=== PATIENT | female | born 1945 | race Caucasian/White ===

== ENCOUNTER 2024-03-17 16:55 | Inpatient (IN) | payer OTHER, SELFPAY ==
[2024-03-17] VITALS (14 sets, daily range): BP systolic 92–150; BP diastolic 50–89; PULSE 2–88; BMI 17.3
--- NOTE | 2024-03-17 13:19 | ED.GENMED ---
History of Present Illness
General
Chief Complaint: Breathing Problem
Source: patient, records and ambulance crew
Exam Limitations: clinical condition
Time Seen by Provider: 03/17/24 13:13
Nursing documentation reviewed up to this point in time: agreed with
Travel History
Have you had any contact with someone who has COVID-19?: No
Do you have any symptoms of coronavirus? Fever > 100 degrees, chills, cough, shortness of breath, sore throat, loss of taste or smell, muscle aches, or headache?: No
History of Present Illness
History of Present Illness:
79-year-old female with a past medical history of hypertension, hyperlipidemia, CHF, atrial fibrillation, GERD, longtime smoker who presents to the emergency department via EMS in respiratory distress. Patient is in severe respiratory distress and
is somewhat limited as a historian for this reason. She says that she started feeling short of breath last night and it was much worse this morning. She denies any coughing. Denies any fever. She denies any chest pain. Rest of review of systems
negative. According to EMS they were called for respiratory distress. According the patient's she was having some shortness of breath this morning and when he went outside to do yard work and came back she was noted to be in severe
respiratory distress and EMS was called. Per EMS on their arrival she was severely hypertensive to greater than 180 and she was given nitroglycerin. She was significantly hypoxic in the low 80s and thus she was placed on CPAP with concern for CHF.
She was transported to the emergency room.
Past History
Past History
ED Past Medical History: CAD, CHF, HTN and Other (Dissection)
ED Past Surgical History: Cardiac
Social History
Tobacco: Non-smoker
Personal:
Living: with family
Review of Systems
Review of Systems
All Other Systems: ROS reviewed and negative except as documented in HPI and ROS
Constitutional: Denies fever
Respiratory: Reports trouble breathing; Denies cough
Cardiac: Denies chest pain or palpitations
ABD/GI: Denies abdominal pain
: Denies flank pain
Musculoskeletal: Denies edema, neck pain or back pain
Neurological: Denies headache
Phy Exam
Physical Exam
Physical Exam:
General: Awake, alert, oriented x3; in respiratory distress
Head: Normocephalic, atraumatic
Eyes: Conjunctiva normal
Throat: Airway intact, handling secretions
Neck: Trachea midline, supple without meningismus
Lungs: Patient is tachypneic, hypoxic; she is saturating 88% on CPAP from EMS; she has basilar Rales and scattered expiratory wheeze
Heart: Tachycardia with regular rhythm, no murmurs, gallops, or rubs
Abd: Soft, non distended, nontender
Neuro: No gross deficits
Skin: no rash
Extremities: No edema in extremities, equal pulses in all extremities
Scores
Heart Failure Risk
Heart Failure Risk Score: Not Applicable
Heart Score for Chest Pain Patients
STEMI patient?: Not applicable
Withdrawal Assessment of Alcohol
Withdrawal Assessment Completed?: Not applicable
Course
Orders/Labs/Results
Orders:
Orders
03/17/24 13:13
CR Chest Portable - 1 View Urgent
Comment:
Reason For Exam: sob
Reason Study Needs to be Portable: Unable to Transport
03/17/24 13:14
Electrocardiogram (*1) Urgent
Reason for Study: Shortness of Breath
EKG- Treatment ONCE
Bipap [RESP] Urgent
Patient to use own unit?: No
Inspiratory Pressure (cm H2O): 12
Expiratory Pressure (cm H2O): 5
03/17/24 13:17
Complete Blood Count/With Diff Urgent
Comprehensive Metabolic Panel Urgent
Digoxin Urgent
Magnesium Urgent
NT-proBNP Urgent
PTT Urgent
Prothrombin Time Urgent
Troponin I Urgent
03/17/24 13:18
COVID-19 Antigen Urgent
Source: Nasal Swab
Lactate Level [Lactic Acid] Urgent
Influenza A+B Rapid Molecular Urgent
VILLA Source: Nasal Swab
Specimen Description:
03/17/24 13:19
Ipratropium/Albuterol Sulfate [Duoneb] 3 ml INH R NOW ONE
MethylPREDNISolone PF [Solu-Medrol Pf] 125 mg IV NOW STA
Abnormal Lab Results
03/17/24 03/17/24
13:17 13:18
WBC 12.9 H 10^3/uL
(4.8-10.8)
MCH 31.8 H pg
(27.0-31.0)
MPV 10.6 H fL
(7.4-10.4)
Abs Immat Gran (auto) 0.1 H 10^3/uL
(0-0.05)
Absolute Lymphs (auto) 6.2 H 10^3/uL
(1.2-3.4)
Absolute Monos (auto) 0.8 H 10^3/uL
(0.1-0.6)
PT 14.7 H Sec
(11.4-14.6)
Sodium 130 L mmol/L
(135-145)
Chloride 96 L mmol/L
(98-107)
Creatinine 1.3 H mg/dL
(0.6-1.0)
Glucose 263 H mg/dl
(70-99)
Lactic Acid 3.4 H mmol/L
(0.7-2.0)
Total Protein 6.2 L g/dl
(6.3-8.2)
03/17/24 13:17
03/17/24 13:17
Vital Signs
Initial and Last Documented VS:
Initial Vital Signs
Pulse Resp BP Pulse Ox
92 33 150/80 94
03/17/24 13:35 03/17/24 13:35 03/17/24 13:35 03/17/24 13:35
Last Documented Vital Signs
Pulse Resp BP Pulse Ox
92 33 150/80 94
03/17/24 13:35 03/17/24 13:35 03/17/24 13:35 03/17/24 13:35
MDM/Problems Addressed
Differential Diagnosis Includes:
CHF/flash pulmonary edema, COPD/bronchitis, pneumonia, PE a consideration but considered less likely as she is on Eliquis
MDM/Problems Addressed:
79-year-old female with extensive history as documented presents to the emergency room in severe respiratory distress. She was hypertensive, hypoxic for EMS and was given nitroglycerin and CPAP. She arrives saturating 88% on EMS CPAP and is
tachypneic with a respiratory rate in the 30s. Physical exam as above. She was transitioned to BiPAP here with improvement in oxygenation work of breathing. Will dose with steroid and DuoNeb with wheezing and longtime smoking history. Will send
labs including CBC, CMP, troponin, BNP, viral swabs. Check a stat portable chest x-ray. Check an EKG. Reassess after the above�anticipate admission.
Labs reviewed: CBC shows slight leukocytosis to 12.9, CMP shows mild hyponatremia in the setting of hyperglycemia with a glucose of 263, chronic kidney disease with a creatinine of 1.3 which is stable. Viral swabs were negative. Chest x-ray shows
mild edema consistent with acute CHF exacerbation. Will treat with IV Lasix. Suspect there may be some element of COPD as well. She was treated with DuoNeb and steroid, appears very comfortable on BiPAP with acceptable oxygenation and improved
respiratory rate. Her initial hypertension has now normalized. I think she is stable for admission at this point for acute hypoxic respiratory failure secondary to CHF exacerbation with likely some underlying element of COPD as well. Case
discussed with hospitalist for admission.
Chronic conditions affecting care:
CHF, hypertension, smoking
Acute Exacerbation and/or Progression of Chronic Illness:
Acutely hypertensive treated with nitroglycerin
Acute Exacerbation and/or Progression of Chronic Illness: HTN
*Radiology
Radiology exam reviewed: preliminary read by ED provider and radiology read reviewed
*Pulse Oximetry
Patient hypoxic: yes
*EKG
Interpreted by ED Provider?: Yes
Comparison EKG: no changes
Heart Rate: 114
Rate: tachycardiac
Rhythm: sinus and sinus tachycardia
[place]: left axis deviation
Interval: normal interval
QRS Pattern: left vent hypertrophy
Ischemia: no ischemia
*Critical Care Note
Total Time (30-74mins, 75-104mins- exclusive of procedures): 33
comment:
Critical care statement: A total of 33 minutes of critical care time was provided for this patient. This includes management of unstable vital signs, evaluation of the patient at bedside, frequent reassessment, discussion with
consultants/hospitalist, and review of pertinent medical records. This time was separate from time utilized to perform any aforementioned documented procedures
Data Reviewed
Review of Other/Old Records Reveals: Labs, Records and Radiology Studies
Source: patient, records and ambulance crew
Patient Management
Discussion with other providers: Hospitalist (Discussed with hospitalist)
Escalation/DeEscalation of care consider admission/obs:
Admission indicated
ED Attending Note
-
Portions of this chart may have been created with voice recognition software.� Occasional wrong word or��sound alike� substitutions may have occurred due to the inherent limitations of voice recognition software.
Discharge Plan
Departure
Patient Disposition: Admit
Date of Disposition: 03/17/24
Time of Disposition: 14:22
Admit to doctor: Guille
Presentation/result/management discussed w/ accepting MD/DO: Hospitalist
Discharge Problem:
Acute hypoxemic respiratory failure, COPD exacerbation, CHF exacerbation
Prescriptions:
No Action
carvedilol 6.25 mg tablet
6.25 mg PO BID
ondansetron HCl 4 mg Tablet
4 mg PO Q8H PRN (Reason: nausea/vomiting)
clopidogrel 75 mg tablet
75 mg PO DAILY
spironolactone 25 mg tablet
25 mg PO DAILY
pantoprazole 40 mg tablet,delayed release (DR/EC)
40 mg PO DAILY
digoxin 125 mcg (0.125 mg) tablet
125 mcg PO DAILY
lorazepam 1 mg tablet
1 mg PO Q6H PRN (Reason: anxiety)
Patient Comments:
01/28/2023: last filled 01/27/23, 90 tabs for 90 days from [facility]
fluticasone propionate 50 mcg/actuation [place],Suspension
1 spray INTRANASAL DAILY PRN (Reason: allergies)
rosuvastatin 20 mg tablet
20 mg PO DAILY
Eliquis 5 mg tablet
5 mg PO BID
furosemide 20 mg Tablet
20 mg PO DAILY PRN (Reason: swelling) Qty: 30 0RF
Rx Instructions:
Take 20mg daily as needed for swelling or weight gain of 2lbs.
Referrals:
Sony Baker MD [Family Provider] -
Interventions
Interventions:
*Risk Screen - Suicide Last Done: 03/17/24 13:14
*General Assessment Last Done: 03/17/24 13:14
*Neglect/Abuse Screening Last Done: 03/17/24 13:14
ED- Cardiac Assessment Last Done: 03/17/24 13:31
ED- Pulmonary Assessment Last Done: 03/17/24 13:31
Discharge Date and Time
Print Language: YORUBA
[2024-03-17 13:32] LABS: % Basophils 0.5 % (0-2); % Eosinophils 2.1 % (0-6); % Immature Granulocytes 0.4 % (0-0.5); % Lymphocytes 47.8 % (20.5-51.1); % Monocytes 6.2 % (1.7-9.3); Absolute Basophils 0.1 10^3/uL (0-0.2); Absolute Eosinophils 0.3 10^3/uL (0-0.7); Absolute Immature Granulocytes 0.1 10^3/uL (0-0.05); Absolute Lymphocytes 6.2 10^3/uL (1.2-3.4); Absolute Monocytes 0.8 10^3/uL (0.1-0.6); Absolute Neutrophils 5.5 10^3/uL (1.4-6.5); Hematocrit 40.9 % (37.0-47.0); Hemoglobin 13.5 g/dL (12.0-16.0); Mean Corpuscular Hgb 31.8 pg (27.0-31.0); Mean Corpuscular Volume 96.5 fL (81.0-99.0); Mean Platelet Volume 10.6 fL (7.4-10.4); Nucleated Red Blood Cells % 0 %; Platelet Count 227 10^3/uL (130-400); Red Blood Cell Count 4.24 10^6/uL (4.20-5.40); Red Cell Dist. Width 13.4 % (11.5-14.5); White Blood Cell Count 12.9 10^3/uL (4.8-10.8)
[2024-03-17 13:48] LABS: COVID-19 Antigen Negative (Negative); Lactic Acid 3.4 mmol/L (0.7-2.0)
[2024-03-17 13:49] LABS: ALT (SGPT) 24 U/L (0-35); AST (SGOT) 24 U/L (14-36); Albumin 3.9 g/dl (3.5-5.0); Alkaline Phosphatase 85 U/L (38-126); Blood Urea Nitrogen 14 mg/dl (7-17); Calcium 9.2 mg/dl (8.4-10.2); Carbon Dioxide 25 mmol/L (22-30); Chloride 96 mmol/L (98-107); Estimated Creatinine Clearance 27 ml/min; Glucose 263 mg/dl (70-99); Potassium 4.5 mmol/L (3.5-5.1); Sodium 130 mmol/L (135-145); Total Bilirubin 0.7 mg/dl (0.2-1.3); Total Protein 6.2 g/dl (6.3-8.2); eGFR 41.57
[2024-03-17 13:50] LABS: INR 1.17; PT 14.7 Sec (11.4-14.6)
[2024-03-17 13:51] LABS: APTT 29.1 Sec (23.4-35.0)
[2024-03-17 13:59] LABS: Troponin I < 0.012 ng/ml
[2024-03-17 14:29] LABS: NT-proBNP 7020 pg/ml
[2024-03-17] MEDS: DUONEB 3 ML INH ×2 (14:51→20:58)
[2024-03-17] MEDS: SOLU-MEDROL PF 125 MG IV (14:52)
[2024-03-17] MEDS: LASIX 40 MG IV (14:53)
--- NOTE | 2024-03-17 15:34 | HPS.HSE ---
Addendum entered and electronically signed by Destiny Booth MD 03/17/24 16:26:
pt seen and examined independently--agree with PA note
GENERAL: chronically ill cachectic female in no apparent distress although is on BiPAP currently
HEENT: NC/AT BiPAP
HEART: regular rate and rhythm, +S1, +S2--bradycardia, murmur
LUNGS : crackles all lung cornejo
ABDOM: soft, nontender, nondistended, + bowel sounds
EXT: no cyanosis, clubbing, or edema
NEUROLOGIC: grossly intact
SOB (could not lie flat) with Acute Hypoxic Respiratory Failure possibly due to Acute on Chronic HFrEF (EF 10-15%)--daughters report that her outpt color corrector does not have her on standing lasix (only PRN) and took her off spironolactone and
started amiodarone for BP control?--ADMIT to IVU--suspect heart is truly failing and would need milrinone to augment BP for diuresis--other option is midodrine--this may not be heart failure at all and SOB could be due to ILD/pulm fibrosis (pt
continues to smoke)--wean off BiPAP--consult cards--diuresis as able, daily weights, I/Os
Paroxysmal Atrial Fibrillation--not on anticoagulation for unclear reasons--ECG shows normal sinus, but rates are currently slightly bradycardia (on digoxin and amiodarone from outpt color corrector)--hold Amiodarone, Digoxin and Coreg
Coronary Artery Disease s/p BRENNAN in March 2017--Continue Plavix
Essential Hypertension -Monitor BP closely
Hyperlipidemia-Continue Crestor
CKD Stage III--Creatinine at baseline--Monitor closely while on diuretics--high risk for going into cardiorenal syndrome
COPD--Patient does not use any inhalers at home and continues to smoke--Continue DuoNeb
Tobacco Use Disorder--told needs to quit smoking
GERD--Continue Protonix
DVT proph: Heparin SC
Code Status: Full Code
overall prognosis is poor, EF 10-15%, would strongly consider palliative care/hospice if BP is limiting appropriate treatments and pt continues to smoke
Original Note:
Family Physician
-
Family Physician: Sony Baker
Chief Complaint
-
Shortness of Breath
History of Present Illness
This is an 79 year old female with past medical history of heart failure, atrial fibrillation, and coronary artery disease who presents to the emergency department with shortness of breath since yesterday. Patient reports she started feeling short
of breath when she went to bed last night. She notes she experienced shortness of breath when trying to lay flat last night and awoke this morning with increased breathing issues, prompting her to present to the emergency department. She denies
recent illness, sick contacts, or recent travel. She denies chest pain, palpitations, fever, sweats, and chills.
Upon further review with family apparently her color corrector recently stopped her spironolactone and started her on amiodarone.
Medical History
Past Medical History
Past Medical History: Reports Other
Additional Past Medical History:
Coronary Artery Disease s/p BRENNAN in March 2017
Ischemic Cardiomyopathy
Chronic HFrEF
Aortic Dissection
Paroxysmal Atrial Fibrillation
Essential Hypertension
Hyperlipidemia
CKD Stage III
COPD/ILD
GERD
Past Surgical History: Reports Other
Additional Past Surgical History:
Aortic Dissection Repair with Stent
Social History
Tobacco: Smoker (1/2 ppd)
Family History
Family History: Not pertinent
Allergies / Home Medications
Allergies reflects when Allergies were last updated in [email or web address].
Home Medications with original date entered in [email or web address]
Allergy/Medication List:
Allergies
Allergy/AdvReac Type Severity Reaction Status Date / Time
ibuprofen Allergy Unknown Unknown Verified 03/17/24 13:16
levofloxacin [From Levaquin] Allergy Unknown Unknown Verified 03/17/24 13:16
morphine Allergy Unknown Unknown Verified 06/05/24 13:16
Penicillins Allergy Unknown Unknown Verified 03/17/24 13:16
Home Medications
carvedilol 6.25 mg tablet 6.25 mg PO BID Heart disease/condition 01/28/23
clopidogrel 75 mg tablet 75 mg PO DAILY Blood clot prevention/tx 01/28/23
digoxin 125 mcg (0.125 mg) tablet 62.5 mcg PO DAILY Heart disease/condition 01/28/23
lorazepam 1 mg tablet 1 mg PO Q6HPRN PRN anxiety 01/28/23
pantoprazole 40 mg tablet,delayed release 40 mg PO DAILYPRN PRN gastrointestinal issue 01/28/23
rosuvastatin 20 mg tablet 20 mg PO HS High cholesterol 01/28/23
furosemide 20 mg tablet 20 mg PO DAILY PRN swelling #30 tabs 01/30/23
amiodarone 200 mg tablet 200 mg PO DAILY 03/17/24
dicyclomine 20 mg tablet 20 mg PO Q6HPRN PRN gas 03/17/24
pseudoephedrine 30 mg-acetaminophen 500 mg tablet 1 tab PO DAILYPRN PRN sinus pain 03/17/24
Review of Systems
-
A 12 point ROS was completed and negative except as noted: Yes
Constitutional: Denies Fever or Chills
Respiratory: Reports Trouble Breathing; Denies Cough
Cardiac: Denies Chest Pain or Palpitations
Physical Exam
Vital Signs
Vital Signs
Pulse Resp BP Pulse Ox
67 19 107/50 99
03/17/24 15:01 03/17/24 15:01 03/17/24 15:01 03/17/24 15:01
Physical Exam
General: Well Developed, Well Nourished and Conversant
HEENT: NormoCephalic, Anicteric, Moist mucous membranes and Other (BiPAP in place)
Respiratory: Rales (Bilateral Bases)
Cardiac: S1/S2, Regular Rhythm and Bradycardia (Slightly)
GI: Soft and Non Tender
Rectal: Deferred by Provider
Musculoskeletal: No Clubbing, No Cyanosis and No Edema
Skin: Warm and Dry
Neuro: Awake, Alert, Oriented and Nonfocal/grossly intact
Laboratory Results
-
03/17/24 13:17
03/17/24 13:17
Laboratory Results
PT 14.7 Sec (11.4-14.6) H 03/17/24 13:17
INR 1.17 03/17/24 13:17
APTT 29.1 Sec (23.4-35.0) 03/17/24 13:17
Lactic Acid 3.4 mmol/L (0.7-2.0) H 03/17/24 13:18
Total Bilirubin 0.7 mg/dl (0.2-1.3) 03/17/24 13:17
AST 24 U/L (14-36) 03/17/24 13:17
ALT 24 U/L (0-35) 03/17/24 13:17
Alkaline Phosphatase 85 U/L (38-126) 03/17/24 13:17
Troponin I < 0.012 ng/ml 03/17/24 13:17
Data Reviewed
-
Diagnostic Radiology: Report Reviewed by me
Lab Data: Labs Reviewed by me
Impression/Plan
-
Acute Hypoxic Respiratory Failure secondary to Acute on Chronic HFrEF
-Initially on BiPAP but able to wean off - Continue supplemental oxygen
-Consult Cardiology
-Continue Lasix 40mg IV Daily
-Monitor Is&Os and Daily Weights
-Check Echo
Paroxysmal Atrial Fibrillation
-ECG shows normal sinus, but rates are currently slightly bradycardia
-Hold Amiodarone, Digoxin and Coreg pending Cardiology Evaluation
-Attempt to obtain recent Cardiology Office Note
Coronary Artery Disease s/p BRENNAN in March 2017
-Continue Plavix
Essential Hypertension
-Monitor BP closely
Hyperlipidemia
-Continue Crestor
CKD Stage III
-Creatinine at baseline
-Monitor closely while on diuretics
COPD
-Patient does not use any inhalers at home
-Continue DuoNeb
Tobacco Use Disorder
-Encourage smoking cessation
GERD
-Continue Protonix
DVT proph: Heparin SC
Code Status: Full Code
[2024-03-17 15:39] LABS: Digoxin 0.4 ng/ml (0.8-2.0)
--- NOTE | 2024-03-17 15:41 | CON.CAR ---
Addendum entered and electronically signed by Karan Luis MD 03/17/24 17:30:
I saw and examined the patient.
The [employer] Operator's note was reviewed and I agree with the note.
Comment:
GEN: No distress, awake, Ox3
HEENT: supple, anicteric, mmm
LUNGS: scatt rhonchi
CV: Reg, S1/S2, 1/6 syst LSB,S3+
ABD: soft, BS+, NT/ND
EXT: No edema
NEURO: Gross non-focal
SKIN: No rash
Plan:
She has a complex past medical history including chronic heart failure with reduced ejection fraction of 10 to 15%, paroxysmal atrial fibrillation, hypertension, previous aortic dissection repair, ICD, coronary artery disease, hyperlipidemia,
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 She presents with progressive shortness of breath for several days. She woke up last night with marked shortness of breath and was in respiratory distress. She was brought to [facility] was placed
on CPAP and given diuretics. She states that she has had several trips to the emergency room at [place] this month. In February she was diagnosed with hyperkalemia and her spironolactone was stopped. Then in mid February she was found to have new onset
atrial fibrillation with a rapid ventricular rate. She was not anticoagulated for unclear reasons, possibly due to low burden of atrial fibrillation. Amiodarone was added to her carvedilol and digoxin. Currently she feels better after starting
BiPAP
Start Lasix 40 mg IV twice daily.
Check echocardiogram to reevaluate LVEF and aortic valve.
Continue carvedilol and amiodarone.
Hold off on spironolactone or MARCUS/ARB with history of recent hyperkalemia.
She fortunately remains in sinus rhythm. I discussed with her and her family anticoagulation and for now they prefer to stay off of Eliquis but will think about this option. I did advise them that her [id number] score is 5 and she is high risk
for stroke.
Original Note:
Consultation
Consultation Request
Date/Time Consultation Requested: 03/17/24
Date/Time Consultation Performed: 03/17/24
Requesting Provider: Dr. Garrison in the ER
Performing Provider: Dr. Luis
Reason for Consultation: Acute HF
Medical History
-
History of Present Illness:
Patient came to ER today with shortness of breath and is being admitted with acute heart failure, cardiology has been consulted. Patient is present in the room along with her and her 2 daughters[address] Patient [address]. Hernandez at [facility].
Patient was seen in [facility] ER on 02/18/2024 with diarrhea and hyperkalemia, treatment included cessation of spironolactone. Patient then returned to [facility] ER almost 2 weeks later with palpitations and was found to be in atrial fibrillation and a rapid
ventricular response. She has a remote history of A-fib around the time of her type a aortic dissection repair in 2016, but this was her first documented recurrence. She is not chronically anticoagulated due to the low burden of atrial arrhythmia.
Patient says treatment for her recurrent A-fib 02/2024 was the addition of amiodarone 200 mg daily to her usual doses of Coreg 6.25 mg twice daily and digoxin 0.0625 mg daily. Patient says that she opted not to start oral anticoagulation because
she was previously intolerant to Eliquis with a complaint of GI upset, no history of bleeding complications. Patient says that when she went to bed last night she had symptoms of orthopnea and PND, but no chest pain and no palpitations. Today
while outside gardening her shortness of breath recurred and at rest she could not catch her breath and so her called 911. Paramedics reported that patient was in respiratory distress and CPAP was started en route to the hospital. The
patient was given Lasix 40 mg IV x 1 in the ER and has had increased urine output and improvement in her shortness of breath and hypoxia.
PMH:
Chronic HFrEF
ICM EF 10-15% by echo 01/29/23
Recent [facility] ER visit for diarrhea and hyperkalemia treated with cessation of spironolactone 02/18/24
Recent [facility] ER visit for rapid Afib treated with addition of amiodarone 02/27/24
Paroxysmal Afib
[employer] subcutaneous ICD 05/2017
CAD
NSTEMI w/ LAD BRENNAN 03/2017
Hypertension
Hyperlipidemia
PVCs
Active smoker
h/o Type A Aortic dissection s/p open heart repair/stented at [facility] 03/2017
h/o post-op complicated with clot around the stent and started Eliquis 03/2017
h/o post-op Afib without documented clinical recurrence 03/2017
Benign breast disease - lumpectomy
Colon polypectomy
Raynaud's
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
Past Medical History
Past Medical History: Other (in HPI)
Past Surgical History: Cardiac (aortic dissection s/p open heart repair and stented in 2016 @ [facility])
Social History
Tobacco: Smoker
Alcohol: Occasional
Drug: None
Personal:
Living: With Family
Family History
Family History: Cancer
Allergies / Home Medications
Allergy/AdvReac Type Severity Reaction Status Date / Time
ibuprofen Allergy Unknown Unknown Verified 03/17/24 13:16
levofloxacin [From Levaquin] Allergy Unknown Unknown Verified 03/17/24 13:16
morphine Allergy Unknown Unknown Verified 03/17/24 13:16
Penicillins Allergy Unknown Unknown Verified 03/17/24 13:16
�Medication �Instructions �Recorded �Confirmed �Type
carvedilol 6.25 mg tablet 6.25 mg PO BID Heart 01/28/23 03/17/24 History
disease/condition
clopidogrel 75 mg tablet 75 mg PO DAILY Blood clot 01/28/23 03/17/24 History
prevention/tx
digoxin 125 mcg (0.125 mg) tablet 62.5 mcg PO DAILY Heart 01/28/23 03/17/24 History
disease/condition
lorazepam 1 mg tablet 1 mg PO Q6HPRN PRN anxiety 01/28/23 03/17/24 History
pantoprazole 40 mg tablet,delayed 40 mg PO DAILYPRN PRN 01/28/23 03/17/24 History
release gastrointestinal issue
rosuvastatin 20 mg tablet 20 mg PO HS High cholesterol 01/28/23 03/17/24 History
furosemide 20 mg tablet 20 mg PO DAILY PRN swelling #30 01/30/23 03/17/24 Rx
tabs
amiodarone 200 mg tablet 200 mg PO DAILY 03/17/24 03/17/24 History
dicyclomine 20 mg tablet 20 mg PO Q6HPRN PRN gas 03/17/24 03/17/24 History
pseudoephedrine 30 1 tab PO DAILYPRN PRN sinus pain 03/17/24 03/17/24 History
mg-acetaminophen 500 mg tablet
Review of Systems
-
History Source: Patient and Family
All other systems: Negative unless noted
Physical Exam
Vital Signs
Pulse Resp BP Pulse Ox
67 19 107/50 99
03/17/24 15:01 03/17/24 15:01 03/17/24 15:01 03/17/24 15:01
GEN: NAD. AAOx3
HEENT: EOMI, MMM
LUNGS: Wearing CPAP, bibasilar rales without wheeze
CV: Reg, S1/S2, 2/6 diastolic murmur
ABD: soft, BS+, NT, ND
EXT: No cyanosis, clubbing, edema B/L
NEURO: Gross non-focal
SKIN: Warm, pink, dry. No rash
Lab Results
03/17/24 13:17
03/17/24 13:17
Troponin I < 0.012 ng/ml 03/17/24 13:17
Jbv-E-Bjfwtipbpuf Pept 7020 pg/ml 03/17/24 13:17
Impression / Plan
-
Family Physician:� Dony Simon
Well Flow Operator: Dr. Hernandez, [facility],
Impression:
Acute on chronic HFrEF
Acute hypoxic respiratory failure on CPAP initially
ICM EF 10-15% by echo 01/29/23
Recent [facility] ER visit for diarrhea and hyperkalemia treated with cessation of spironolactone 02/18/24
Recent [facility] ER visit for rapid Afib treated with addition of amiodarone 02/27/24
Paroxysmal Afib
[employer] subcutaneous ICD 05/2017
CAD
NSTEMI w/ LAD BRENNAN 03/2017
Hypertension
Hyperlipidemia
PVCs
Active smoker
h/o Type A Aortic dissection s/p open heart repair/stented at [facility] 03/2017
h/o post-op complicated with clot around the stent and started Eliquis 03/2017
h/o post-op Afib without documented clinical recurrence 03/2017
Benign breast disease - lumpectomy
Colon polypectomy
Raynaud's
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
Cardia cath 03/2017 with: 100% proximal LAD thrombotic stenosis status post BRENNAN, [place] CO 2.84, [place] CI 1.7
Echocardiogram 03/2017: EF 20 to 25%, anterior, apical, lateral wall HK, LA 4.2, RSVP 40 to 45 mmHg, no significant valvular disease
Echo 09/2017 :EF 15 to 20% with mild MR/TR, PAP 40-45 mmhg
Echo 01/29/2023: EF 10 to 15%, severe global hypokinesis with mid anteroseptal, mid septal, mid anterior, apical akinesis, stage I diastolic dysfunction, mild AR
Lexiscan nuclear stress test 04/2019:�Large fixed apical/septal defect
CTA of chest/aorta with and without contrast 11/27/2022 ([facility]):�Ascending aortic root graft without evidence of endoleak sinus of Valsalva 3.4 cm, ST junction 2.8 cm, maximum ascending ao with 3.1 cm ao arch 2.8 cm, descending thoracic aorta 2.7 cm, 8
x 6 mm right pulmonary artery soft tissue focus, previously 7 x 12 mm
Plan:
Patient came to ER today with shortness of breath and is being admitted with acute heart failure, cardiology has been consulted. Patient is present in the room along with her and her 2 daughters[address] Patient [address] Hernandez at [facility].
Patient was seen in [facility] ER on 02/18/2024 with diarrhea and hyperkalemia, treatment included cessation of spironolactone. Patient then returned to [facility] ER almost 2 weeks later with palpitations and was found to be in atrial fibrillation and a rapid
ventricular response. She has a remote history of A-fib around the time of her type a aortic dissection repair in 2016, but this was her first documented recurrence. She is not chronically anticoagulated due to the low burden of atrial arrhythmia.
Patient says treatment for her recurrent A-fib 02/2024 was the addition of amiodarone 200 mg daily to her usual doses of Coreg 6.25 mg twice daily and digoxin 0.0625 mg daily. Patient says that she opted not to start oral anticoagulation because
she was previously intolerant to Eliquis with a complaint of GI upset, no history of bleeding complications. Patient says that when she went to bed last night she had symptoms of orthopnea and PND, but no chest pain and no palpitations. Today
while outside gardening her shortness of breath recurred and at rest she could not catch her breath and so her called 911. Paramedics reported that patient was in respiratory distress and CPAP was started en route to the hospital. The
patient was given Lasix 40 mg IV x 1 in the ER and has had increased urine output and improvement in her shortness of breath and hypoxia.
-Patient with acute HFrEF. EF has been as low as 20% since 2017 and was lower at 10-15% during her admission to last year. Called Dr. Hernandez's office for records, but no recent echo so will repeat.
-Agree with Lasix 40 mg IV BID diuresis for now. Patient was ordered Lasix 20 mg daily PRN prior to admission, but reports essentially never taking a dose because she never has edema including now.
-Initial Troponin undetectable, will trend
-ECG reviewed by me show sinus tachycardia with lateral ST changes that are better than last year.
-Will arrange for [employer] ICD check although data will be limited.
-ICM is known and GDMT includes Coreg 6.25 mg BID only at this point as her spironolactone was stopped for hyperkalemia in the setting of diarrhea last month. Reportedly she was tried on MARCUS/ARB and then Entresto in the past and developed ABDELRAHMAN and/or
hyperkalemia. Not sute is she has been tried on an SGLT-2.
-Had a shavon conversation with patient and family in the room that patient might require inotropic therapy for effective diuresis and that this would be unfavorable for her prognosis. Asked patient and family if they have had any talks about
long-term CM and the possibility of end-stage HF and they are unaware. Patient wishes to be a full code and wants ICD therapies turned on and she would want to be intubated if needed.
-Patient with paroxysmal Afib at [facility] last month. She is not anticoagulated and no h/o thromboembolic event. Discussed the risk of stroke off of OAC. Family reports GI upset with Eliquis in the past, but no bleeding complications. Patient has
tolerate Plavix therapy since her PCI in 2017.
-Digoxin level 0.4
-Cont amiodarone 200 mg daily for now, but if bradycardic overnight then will need to consider stopping or decreasing Coreg dose. Patient had nocturnal bradycardia last admission.
-Aortic regurgitation sounds worse, will recheck echo.
-Called primary data administrator to get records.
--- NOTE | 2024-03-17 15:56 | CM ---
Patient seen at bedside with physician, 2 daughters, and . Patient primarily goes to [facility] and has a police captain Dr. Romero. Patient PCP is Dr. Simon and she uses the [facility]. Patient does state that she currently
is a Smoker and uses alcohol occasionally. Patient does not have any DME at home. Patient lives with her and all 4 daughters are close by. One daughter is a PT and states that patient will not cooperate with her or follow PT/OT
recommendations. CM will continue to follow for discharge planning needs.
Plan; home with family watch for VN needs.
--- NOTE | 2024-03-17 18:36 | PTCARENOTE ---
Admitted to 3345 IVU status- monitors placed- SR 82-24 RR, 122/64, 100% on 6L NC. Turned O2 down to 3L NC and monitor. Denies pain. Bibase crackles noted. PO diet tray ordered. Admission competed bedside. Ambulated into bathroom x2 to void.
Call albarado in reach . Family at bedside.
[2024-03-17 18:56] LABS: Lactic Acid 1.8 mmol/L (0.7-2.0)
[2024-03-17 19:14] LABS: Troponin I 0.048 ng/ml
[2024-03-17] MEDS: HEPARIN 5000 UNITS SC (19:46)
[2024-03-17] MEDS: CRESTOR 20 MG PO (21:50)
[2024-03-18] VITALS (21 sets, daily range): BP systolic 107–143; BP diastolic 47–102; PULSE 57–61; O2SAT 97–98; BMI 15.9
[2024-03-18] MEDS: HEPARIN 5000 UNITS SC ×4 (01:16→22:34)
[2024-03-18] MEDS: ATIVAN 0.5 MG PO (01:42)
--- NOTE | 2024-03-18 02:05 | PTCARENOTE ---
Pt having complaint of trouble sleeping. Pt states at home she takes Ativan for the anxiety at night. Night [employer] RE[employer]ERATION WORKER made aware and one time order for Ativan 0.5mg ordered. Pt had no other complaints at this time. Vitals stable at this time.
[2024-03-18 05:24] LABS: Hematocrit 37.9 % (37.0-47.0); Hemoglobin 13.5 g/dL (12.0-16.0); Mean Corp Hgb Conc. 35.6 g/dL (33.0-37.0); Mean Corpuscular Hgb 31.6 pg (27.0-31.0); Mean Corpuscular Volume 88.8 fL (81.0-99.0); Mean Platelet Volume 9.9 fL (7.4-10.4); Platelet Count 193 10^3/uL (130-400); Red Blood Cell Count 4.27 10^6/uL (4.20-5.40); Red Cell Dist. Width 13.1 % (11.5-14.5); White Blood Cell Count 8.1 10^3/uL (4.8-10.8)
[2024-03-18 05:51] LABS: Blood Urea Nitrogen 21 mg/dl (7-17); Calcium 9.5 mg/dl (8.4-10.2); Carbon Dioxide 28 mmol/L (22-30); Chloride 94 mmol/L (98-107); Estimated Creatinine Clearance 33 ml/min; Glucose 119 mg/dl (70-99); HDL Cholesterol 55 mg/dl; LDL Cholesterol, Calculated 79 mg/dl; Magnesium 1.6 mg/dl (1.6-2.3); Potassium 4.1 mmol/L (3.5-5.1); Sodium 131 mmol/L (135-145); Total Cholesterol 144 mg/dl (50-199); Triglyceride 50 mg/dl (10-149); Very Low Density Lipoprotein 10 mg/dl (0-30); eGFR 56.95
[2024-03-18 06:23] LABS: TSH Reflex To Free T4 0.05 uIU/ml (0.47-4.68)
[2024-03-18 06:51] LABS: Free T4 1.29 ng/dl (0.78-2.19)
[2024-03-18 07:09] LABS: Troponin I 0.053 ng/ml
[2024-03-18] MEDS: PLAVIX 75 MG PO (08:07)
[2024-03-18] MEDS: LASIX 40 MG IV (08:07)
[2024-03-18] MEDS: DUONEB INH (08:15)
--- NOTE | 2024-03-18 08:45 | W.PN.HOSP.TC ---
Today's Communication/Plan
-
cont diuresis
restart meds as per cards
assess for home O2
Assessment / Plan
Assessment / Plan
pt is an 79 year old female
SOB (could not lie flat) with Acute Hypoxic Respiratory Failure possibly due to Acute on Chronic HFrEF (EF 10-15%)--daughters report that her outpt mercerizer does not have her on standing lasix (only PRN) and took her off spironolactone and
started amiodarone for BP control?---suspect heart is truly failing and may need milrinone to augment BP for diuresis--other option is midodrine--this may not be all heart failure and SOB could be due to ILD/pulm fibrosis (pt continues to smoke)--
off BiPAP--apprec cards--diuresis as able, daily weights, I/Os--pt wants to be discharged today--I do not believe she wants to hear what we have to say re: how sick she is, what GDMT is, etc--I believe she will do what she wants when she wants--IF
she insists on leaving it will be AMA--since pt still on O2, likely will need at home; HOWEVER, pt continues to smoke--will place assessment for home O2
Paroxysmal Atrial Fibrillation--not on anticoagulation for unclear reasons--ECG shows normal sinus, but rates are currently slightly bradycardia (on digoxin and amiodarone from outpt mercerizer)--hold Amiodarone, Digoxin and Coreg--restart at
cardiology discretion
Coronary Artery Disease s/p BRENNAN in March 2017--Continue Plavix
Essential Hypertension -Monitor BP closely
Hyperlipidemia-Continue Crestor
CKD Stage III--Creatinine at baseline--Monitor closely while on diuretics--high risk for going into cardiorenal syndrome
COPD--Patient does not use any inhalers at home and continues to smoke--Continue DuoNeb
Tobacco Use Disorder--told needs to quit smoking
GERD--Continue Protonix
DVT proph: Heparin SC
Code Status: Full Code
overall prognosis is poor, EF 10-15%, would strongly consider palliative care/hospice if BP is limiting appropriate treatments and pt continues to smoke
either pt has not been told or is in denial about how sick she truly is and that she has end-stage heart failure
Anticipated Discharge: > 48 hours
Subjective/Interval History
-
Date of Service: March 18, 2024
pt wants to go home
wants her meds restarted at the times she wants
Objective Data
-
Labs:
Laboratory Results
03/18/24
05:09
WBC 8.1
Hgb 13.5
Hct 37.9
Plt Count 193
Sodium 131 L
Potassium 4.1
Chloride 94 L
Carbon Dioxide 28
BUN 21 H
Creatinine 1.0
Glucose 119 H
Calcium 9.5
Vital Signs:
max temp for 24 hours
03/17/24
19:25
Temp 98.4 F
Vital Signs
Temp Pulse Resp BP Pulse Ox
96.4 F L 74 17 127/69 97
03/18/24 07:20 03/18/24 08:07 03/18/24 06:00 03/18/24 08:07 03/18/24 08:17
I&O
03/17/24 03/18/24 03/19/24
06:59 06:59 06:59
Intake Total 120 / 120
Balance 120 / 120
Review of Systems
-
All other systems: Reviewed and negative
Physical Exam
-
General: Well Developed, Well Nourished and No Apparent Distress
HEENT: Normocephalic, Atraumatic and Oxygen
Respiratory: Rales (bases)
Cardiac: Regular Rhythm, S1/S2, Murmur and Bradycardic
GI: Soft, Nontender, Nondistended and Normal Bowel Sounds
Musculoskeletal: No Clubbing, No Cyanosis and No Edema
Neuro: Awake and Alert
Psych: Calm
[2024-03-18] MEDS: PACERONE 200 MG PO (09:11)
[2024-03-18] MEDS: APRESOLINE 10 MG PO ×3 (09:11→22:35)
--- NOTE | 2024-03-18 10:21 | CARDSERVLU ---
Echocardiogram with Lumason completed after protocol screening completed. Allergies verified.
Patent IV site: _Right arm accessory cephalic IV site clear____
IV site flushed with 0.9% NaCl pre and post administration.
Diluted bolus method utilized to enhance visualization of ventricular bran.
Total volume given: _4___ mL
Patient tolerated all procedures well without complications.
--- NOTE | 2024-03-18 10:56 | W.PN.CARDCBS ---
Today's Communication / Plan
-
Continue IV Lasix today, tentative transition to oral Lasix in the next 24 to 48 hours
Start hydralazine for afterload reduction
Will add back Coreg at a lower dose
Stop digoxin as she is currently in sinus rhythm
Impression / Plan
-
Family Physician:� Dony Simon
Customer Solutions Representative: Dr. Hernandez, [facility],
Impression:
Acute on chronic HFrEF
Acute hypoxic respiratory failure on CPAP initially
Lactic acidosis
ICM EF 10-15% by echo 01/29/23
Troponin elevation - suspect nonischemic myocardial injury troponin elevation
Recent [facility] ER visit for diarrhea and hyperkalemia treated with cessation of spironolactone 02/18/24
Recent [facility] ER visit for rapid Afib treated with addition of amiodarone 02/27/24
Paroxysmal Afib
[employer] subcutaneous ICD 05/2017
CAD
NSTEMI w/ LAD BRENNAN 03/2017
Hypertension
Hyperlipidemia
PVCs
Active smoker
h/o Type A Aortic dissection s/p open heart repair/stented at [facility] 03/2017
h/o post-op complicated with clot around the stent and started Eliquis 03/2017
h/o post-op Afib without documented clinical recurrence 03/2017
Benign breast disease - lumpectomy
Colon polypectomy
Raynaud's
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
Cardia cath 03/2017 with: 100% proximal LAD thrombotic stenosis status post BRENNAN, [place] CO 2.84, [place]row CI 1.7
Echocardiogram 03/2017: EF 20 to 25%, anterior, apical, lateral wall HK, LA 4.2, RSVP 40 to 45 mmHg, no significant valvular disease
Echo 09/2017 :EF 15 to 20% with mild MR/TR, PAP 40-45 mmhg
Echo 01/29/2023: EF 10 to 15%, severe global hypokinesis with mid anteroseptal, mid septal, mid anterior, apical akinesis, stage I diastolic dysfunction, mild AR
Lexiscan nuclear stress test 04/2019:�Large fixed apical/septal defect
CTA of chest/aorta with and without contrast 11/27/2022 ([facility]):�Ascending aortic root graft without evidence of endoleak sinus of Valsalva 3.4 cm, ST junction 2.8 cm, maximum ascending ao with 3.1 cm ao arch 2.8 cm, descending thoracic aorta 2.7 cm, 8
x 6 mm right pulmonary artery soft tissue focus, previously 7 x 12 mm
Patient came to ER today with shortness of breath and is being admitted with acute heart failure, cardiology has been consulted. Patient is present in the room along with her and her [address] Hernandez at [facility].
Patient was seen in [facility] ER on 02/18/2024 with diarrhea and hyperkalemia, treatment included cessation of spironolactone. Patient then returned to [facility] ER almost 2 weeks later with palpitations and was found to be in atrial fibrillation and a rapid
ventricular response. She has a remote history of A-fib around the time of her type a aortic dissection repair in 2016, but this was her first documented recurrence. She is not chronically anticoagulated due to the low burden of atrial arrhythmia.
Patient says treatment for her recurrent A-fib 02/2024 was the addition of amiodarone 200 mg daily to her usual doses of Coreg 6.25 mg twice daily and digoxin 0.0625 mg daily. Patient says that she opted not to start oral anticoagulation because
she was previously intolerant to Eliquis with a complaint of GI upset, no history of bleeding complications. Patient says that when she went to bed last night she had symptoms of orthopnea and PND, but no chest pain and no palpitations. Today
while outside gardening her shortness of breath recurred and at rest she could not catch her breath and so her called 911. Paramedics reported that patient was in respiratory distress and CPAP was started en route to the hospital. The
patient was given Lasix 40 mg IV x 1 in the ER and has had increased urine output and improvement in her shortness of breath and hypoxia.
Plan:
-Presenting with respiratory failure d/t acute decompensate HFrEF (EF 10-15%)
-Lactate initially elevated, but has not normalized. Currently warm and well perfused on exam.
-Volume status is improved with IV lasix
-Remains on supplemental O2, wean as able
-Suspect we can transition to PO lasix in the next 24-48hrs. Was ordered for PRN Lasix 20mg daily prior to admission. We discussed PO lasix 20mg MWF on discharge.
-Reviewed importance of daily weights and limiting Na intake (has been drinking Propel)
-Resume Coreg at lower dose for today 3.125 BID - if tolerating will discharge on 6.25
-Add hydral 10mg TID today for afterload reduction with goal to discharge on 25mg BID.
-Was unable to tolerate MARCUS/ARB/ARNI and Aldactone in the past by her report
-Could consider SGLT2 inhibitor
-Low level troponin elevation, most recently 0.053, would trend to peak
-Currently chest pain free.
-Suspect nonischemic myocardial injury troponin elevation
-History of pAFib, but currently maintaining NSR
-Stop digoxin
-Cont amiodarone 200 mg daily
-Not chronically on anticoagulation, reports medication side effects to oral anticoagulants in the past
Progress Note - Customer Solutions Representative
Subjective
Date of Service: March 18, 2024
No acute overnight events. Resting comfortably in the IMU. Still requiring supplemental oxygen but tells me that her breathing is significantly improved from admission. No chest pain. No lower extremity edema.
Objective
Labs:
03/18/24 05:09
03/18/24 05:09
Labs
Hgb 13.5 g/dL (12.0-16.0) 03/18/24 05:09
Hct 37.9 % (37.0-47.0) 03/18/24 05:09
Plt Count 193 10^3/uL (130-400) 03/18/24 05:09
PT 14.7 Sec (11.4-14.6) H 03/17/24 13:17
INR 1.17 03/17/24 13:17
APTT 29.1 Sec (23.4-35.0) 03/17/24 13:17
Sodium 131 mmol/L (135-145) L 03/18/24 05:09
Potassium 4.1 mmol/L (3.5-5.1) 03/18/24 05:09
BUN 21 mg/dl (7-17) H 03/18/24 05:09
Creatinine 1.0 mg/dL (0.6-1.0) 03/18/24 05:09
Glucose 119 mg/dl (70-99) H 03/18/24 05:09
Digoxin 0.4 ng/ml (0.8-2.0) L 03/17/24 13:17
Troponins
03/17/24 03/17/24 03/17/24
13:17 16:36 18:38
Troponin I < 0.012 Cancelled 0.048 H* D
03/18/24
06:20
Troponin I 0.053 H*
Vital Signs and I&O:
Vital Signs
Temp Pulse Resp BP Pulse Ox
96.4 F L 67 17 126/73 97
03/18/24 07:20 03/18/24 09:11 03/18/24 06:00 03/18/24 09:11 03/18/24 08:17
Vital Signs
Temp Pulse Resp BP Pulse Ox
96.4 F L 67 17 126/73 97
03/18/24 07:20 03/18/24 09:11 03/18/24 06:00 03/18/24 09:11 03/18/24 08:17
Intake & Output
03/16/24 03/17/24 03/18/24 03/19/24
06:59 06:59 06:59 06:59
Intake Total 120 / 120 400 / 400
Balance 120 / 120 400 / 400
Physical Exam
Physical Exam
Gen: NAD, AAOx3
HEENT: NC/AT, sclera anicteric
Neck: No JVD
CV: RRR, NL s1/s2
Lungs: No increased WOB on 2L NC
Abd: S/ND
Ext: No LE edema, warm
Skin: Warm, dry
Neuro: Non-focal
--- NOTE | 2024-03-18 11:15 | PTOTSP ---
pt currently demonstrates ability to complete simple ADLs, functional transfers, ambulation with supervision to no assistance. education provided regarding CHF, exercising, energy conservation. pt verablized understanding. no acute OT needs
identified at this time, will sign off.
[2024-03-18] MEDS: COREG 3.125 MG PO ×2 (11:41→20:16)
[2024-03-18 13:08] LABS: Troponin I 0.039 ng/ml
[2024-03-18 13:14] LABS: Glycohemoglobin (HgbA1c) 6.1 % (4.0-5.6)
[2024-03-18] MEDS: CRESTOR 20 MG PO (17:03)
--- NOTE | 2024-03-18 18:46 | PTCARENOTE ---
pt transferred to IVU via wheelchair and monitor. report provided to Jermaine GORDON from [facility]. family with pt.
--- NOTE | 2024-03-18 22:04 | PTCARENOTE ---
Pt tsf from IMU to IVU. Oriented pt to room. Family at bedside. AOX4. Tele- SR. Assessment noted as documented. Pt sating at 94% on RA. No c/o at this time. Education provided about fluid restriction and daily weights. Pt currently in bed; call [facility]
w/in reach.
[2024-03-18] MEDS: ATIVAN 1 MG PO (22:35)
[2024-03-19 03:42] VITALS: BP 100/49
[2024-03-19 03:43] VITALS: BP 114/57
[2024-03-19 04:39] VITALS: BMI 16.0
[2024-03-19 05:21] LABS: ALT (SGPT) 18 U/L (0-35); AST (SGOT) 18 U/L (14-36); Albumin 3.5 g/dl (3.5-5.0); Alkaline Phosphatase 71 U/L (38-126); Blood Urea Nitrogen 34 mg/dl (7-17); Calcium 9.1 mg/dl (8.4-10.2); Carbon Dioxide 31 mmol/L (22-30); Chloride 90 mmol/L (98-107); Estimated Creatinine Clearance 25 ml/min; Glucose 101 mg/dl (70-99); Magnesium 1.7 mg/dl (1.6-2.3); Potassium 4.2 mmol/L (3.5-5.1); Sodium 129 mmol/L (135-145); Total Bilirubin 0.6 mg/dl (0.2-1.3); Total Protein 5.7 g/dl (6.3-8.2); eGFR 41.57
[2024-03-19 06:13] LABS: Hematocrit 34.7 % (37.0-47.0); Hemoglobin 12.3 g/dL (12.0-16.0); Mean Corp Hgb Conc. 35.4 g/dL (33.0-37.0); Mean Corpuscular Hgb 32.3 pg (27.0-31.0); Mean Corpuscular Volume 91.1 fL (81.0-99.0); Mean Platelet Volume 10.8 fL (7.4-10.4); Platelet Count 189 10^3/uL (130-400); Red Blood Cell Count 3.81 10^6/uL (4.20-5.40); Red Cell Dist. Width 13.2 % (11.5-14.5); White Blood Cell Count 14.8 10^3/uL (4.8-10.8)
[2024-03-19 07:50] VITALS: BP 125/58
--- NOTE | 2024-03-19 08:13 | W.PN.HOSP.TC ---
Today's Communication/Plan
-
d/c
Assessment / Plan
Assessment / Plan
pt is an 79 year old female
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
started amiodarone for BP control?---suspect heart is truly failing and may need milrinone to augment BP for diuresis--other option is midodrine--this may not be all heart failure and SOB could be due to ILD/pulm fibrosis (pt continues to smoke)--
off BiPAP--apprec cards--diuresis as able, daily weights, I/Os----I do not believe she wants to hear what we have to say re: how sick she is, what GDMT is, etc--I believe she will do what she wants when she wants--does not qualify for home O2, pt
continues to smoke
Paroxysmal Atrial Fibrillation--not on anticoagulation for unclear reasons--ECG shows normal sinus, but rates are currently slightly bradycardia (on digoxin and amiodarone from outpt foam tank laminator)--hold Amiodarone, Digoxin and Coreg--restart at
cardiology discretion
Coronary Artery Disease s/p BRENNAN in March 2017--Continue Plavix
Essential Hypertension -Monitor BP closely
Hyperlipidemia-Continue Crestor
CKD Stage III--Creatinine at baseline--Monitor closely while on diuretics--high risk for going into cardiorenal syndrome
COPD--Patient does not use any inhalers at home and continues to smoke--Continue DuoNeb
Tobacco Use Disorder--told needs to quit smoking
GERD--Continue Protonix
DVT proph: Heparin SC
Code Status: Full Code
overall prognosis is poor, EF 10-15%, would strongly consider palliative care/hospice if BP is limiting appropriate treatments and pt continues to smoke
either pt has not been told or is in denial about how sick she truly is and that she has end-stage heart failure
Anticipated Discharge: Today
Subjective/Interval History
-
Date of Service: March 19, 2024
pt feels good, wants to go home
Objective Data
-
Labs:
Laboratory Results
03/19/24
03:48
WBC 14.8 H
Hgb 12.3
Hct 34.7 L
Plt Count 189
Sodium 129 L
Potassium 4.2
Chloride 90 L
Carbon Dioxide 31 H
BUN 34 H
Creatinine 1.3 H
Glucose 101 H
Calcium 9.1
Total Bilirubin 0.6
AST 18
ALT 18
Alkaline Phosphatase 71
Vital Signs:
max temp for 24 hours
03/17/24
13:28 03/19/24
03:42 03/19/24
04:39
Temp 98.4 F
Actual Weight 50.2 kg 46.2 kg
Vital Signs
Temp Pulse Resp BP Pulse Ox
98.6 F 65 20 114/57 93
03/19/24 07:50 03/19/24 04:00 03/19/24 07:50 03/19/24 03:43 03/19/24 07:50
I&O
03/18/24 03/19/24 03/20/24
06:59 06:59 06:59
Intake Total 120 / 120 1190 / 1190
Balance 120 / 120 1190 / 1190
Review of Systems
-
All other systems: Reviewed and negative
Physical Exam
-
General: Appears Chronically Ill and Cachectic
HEENT: Normocephalic and Atraumatic; Negative Oxygen
Respiratory: Clear to Auscultation; Negative Wheezes, Rales, Rhonchi or Crackles
Cardiac: Regular Rhythm, S1/S2 and Murmur
GI: Soft, Nontender, Nondistended and Normal Bowel Sounds
Musculoskeletal: No Clubbing, No Cyanosis and No Edema
Skin: Warm
Neuro: Awake
Psych: Calm
[2024-03-19] MEDS: COREG PO (09:00)
[2024-03-19] MEDS: LASIX IV (09:00)
[2024-03-19] MEDS: APRESOLINE PO (09:00)
[2024-03-19] MEDS: HEPARIN SC (09:17)
[2024-03-19 09:18] VITALS: BP 121/55
[2024-03-19] MEDS: PROTONIX 40 MG PO (09:20)
[2024-03-19] MEDS: COREG 6.25 MG PO (09:20)
[2024-03-19] MEDS: PLAVIX 75 MG PO (09:21)
[2024-03-19] MEDS: PACERONE 200 MG PO (09:21)
[2024-03-19] MEDS: APRESOLINE 25 MG PO (09:21)
--- NOTE | 2024-03-19 09:58 | W.PN.CARDCBS ---
Today's Communication / Plan
-
Stable for discharge from my perspective
Plan for outpatient follow-up with primary counselor supervisor at [facility]
Check BMP in 1-2 weeks to reassess renal function and electrolytes
Impression / Plan
-
Family Physician:� Dony Simon
Economic Geographer: Dr. Hernandez, [facility],
Impression:
Acute on chronic HFrEF
Acute hypoxic respiratory failure on CPAP initially
Lactic acidosis
ICM EF 10-15% by echo 01/29/23
Troponin elevation - suspect nonischemic myocardial injury troponin elevation
Recent [facility] ER visit for diarrhea and hyperkalemia treated with cessation of spironolactone 02/18/24
Recent [facility] ER visit for rapid Afib treated with addition of amiodarone 02/27/24
Paroxysmal Afib
[employer] subcutaneous ICD 05/2017
CAD
NSTEMI w/ LAD BRENNAN 03/2017
Hypertension
Hyperlipidemia
PVCs
Active smoker
h/o Type A Aortic dissection s/p open heart repair/stented at [facility] 03/2017
h/o post-op complicated with clot around the stent and started Eliquis 03/2017
h/o post-op Afib without documented clinical recurrence 03/2017
Benign breast disease - lumpectomy
Colon polypectomy
Raynaud's
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
Cardia cath 03/2017 with: 100% proximal LAD thrombotic stenosis status post BRENNAN, [place] CO 2.84, [place] CI 1.7
Echocardiogram 03/2017: EF 20 to 25%, anterior, apical, lateral wall HK, LA 4.2, RSVP 40 to 45 mmHg, no significant valvular disease
Echo 09/2017 :EF 15 to 20% with mild MR/TR, PAP 40-45 mmhg
Echo 01/29/2023: EF 10 to 15%, severe global hypokinesis with mid anteroseptal, mid septal, mid anterior, apical akinesis, stage I diastolic dysfunction, mild AR
Lexiscan nuclear stress test 04/2019:�Large fixed apical/septal defect
CTA of chest/aorta with and without contrast 11/27/2022 ([facility]):�Ascending aortic root graft without evidence of endoleak sinus of Valsalva 3.4 cm, ST junction 2.8 cm, maximum ascending ao with 3.1 cm ao arch 2.8 cm, descending thoracic aorta 2.7 cm, 8
x 6 mm right pulmonary artery soft tissue focus, previously 7 x 12 mm
Patient came to ER today with shortness of breath and is being admitted with acute heart failure, cardiology has been consulted. Patient is present in the room along with her and her 2 daughters[address] Hernandez at [facility].
Patient was seen in [facility] ER on 02/18/2024 with diarrhea and hyperkalemia, treatment included cessation of spironolactone. Patient then returned to [facility] ER almost 2 weeks later with palpitations and was found to be in atrial fibrillation and a rapid
ventricular response. She has a remote history of A-fib around the time of her type a aortic dissection repair in 2016, but this was her first documented recurrence. She is not chronically anticoagulated due to the low burden of atrial arrhythmia.
Patient says treatment for her recurrent A-fib 02/2024 was the addition of amiodarone 200 mg daily to her usual doses of Coreg 6.25 mg twice daily and digoxin 0.0625 mg daily. Patient says that she opted not to start oral anticoagulation because
she was previously intolerant to Eliquis with a complaint of GI upset, no history of bleeding complications. Patient says that when she went to bed last night she had symptoms of orthopnea and PND, but no chest pain and no palpitations. Today
while outside gardening her shortness of breath recurred and at rest she could not catch her breath and so her called 911. Paramedics reported that patient was in respiratory distress and CPAP was started en route to the hospital. The
patient was given Lasix 40 mg IV x 1 in the ER and has had increased urine output and improvement in her shortness of breath and hypoxia.
Plan:
-Presenting with respiratory failure d/t acute decompensate HFrEF (EF previously 10-15%)
-Lactate initially elevated, but has normalized. Currently warm and well perfused on exam.
-Appears euvolemic today, O2 weaned off and back to her dry weight.
-Given rising Cr would hold off on additional lasix dosing now
-Was ordered for PRN Lasix 20mg daily prior to admission. Plan for PO lasix 20mg MWF on discharge.
-Reviewed importance of daily weights and limiting Na intake (has been drinking Propel)
-Would repeat BMP as an outpatient within the next 2 wks to reassess renal function and electrolytes
-Resume Coreg at home dose 6.25mg BID
-Was unable to tolerate MARCUS/ARB/ARNI and Aldactone in the past by her report
-Add hydralazine 25mg BID on discharge for afterload reduction
-Would consider SGLT2 inhibitor in the future
-Low level troponin elevation, peaked at 0.053
-Currently chest pain free
-Suspect nonischemic myocardial injury troponin elevation
-History of pAFib, but currently maintaining NSR
-Stop digoxin
-Cont amiodarone 200 mg daily
-Not chronically on anticoagulation, reports medication side effects to oral anticoagulants in the past
Recommended cardiac meds on discharge:
Coreg 6.25mg BID
Hydralazine 25mg BID
Amiodarone 200mg daily
Plavix 75mg daily
Rosuvastatin 20mg daily
Lasix 20mg MWF
Progress Note - Economic Geographer
Subjective
Date of Service: March 19, 2024
No acute overnight events. Resting comfortably in bed this morning. Tells me no shortness of breath on room air. No peripheral edema. No chest pain.
Objective
Labs:
03/19/24 03:48
03/19/24 03:48
Labs
Hgb 12.3 g/dL (12.0-16.0) 03/19/24 03:48
Hct 34.7 % (37.0-47.0) L 03/19/24 03:48
Plt Count 189 10^3/uL (130-400) 03/19/24 03:48
PT 14.7 Sec (11.4-14.6) H 03/17/24 13:17
INR 1.17 03/17/24 13:17
APTT 29.1 Sec (23.4-35.0) 03/17/24 13:17
Sodium 129 mmol/L (135-145) L 03/19/24 03:48
Potassium 4.2 mmol/L (3.5-5.1) 03/19/24 03:48
BUN 34 mg/dl (7-17) H 03/19/24 03:48
Creatinine 1.3 mg/dL (0.6-1.0) H 03/19/24 03:48
Glucose 101 mg/dl (70-99) H 03/19/24 03:48
Digoxin 0.4 ng/ml (0.8-2.0) L 03/17/24 13:17
Troponins
03/17/24 03/17/24 03/17/24
13:17 16:36 18:38
Troponin I < 0.012 Cancelled 0.048 H* D
03/18/24 03/18/24
06:20 12:31
Troponin I 0.053 H* 0.039 H* D
Vital Signs and I&O:
Vital Signs
Temp Pulse Resp BP Pulse Ox
98.6 F 62 20 121/55 93
03/19/24 07:50 03/19/24 09:21 03/19/24 07:50 03/19/24 09:21 03/19/24 07:50
Vital Signs
Temp Pulse Resp BP Pulse Ox
98.6 F 62 20 121/55 93
03/19/24 07:50 03/19/24 09:21 03/19/24 07:50 03/19/24 09:21 03/19/24 07:50
Intake & Output
03/17/24 03/18/24 03/19/24 03/20/24
06:59 06:59 06:59 06:59
Intake Total 120 / 120 1190 / 1190
Balance 120 / 120 1190 / 1190
Physical Exam
Physical Exam
Gen: NAD, AAOx3
HEENT: NC/AT, sclera anicteric
Neck: No JVD
CV: RRR, NL s1/s2, 2/6 HSM at the apex
Lungs: CTAB
Abd: S/ND
Ext: No LE edema
Skin: Warm, dry
Neuro: Non-focal
--- NOTE | 2024-03-19 10:37 | PN.CDI ---
Addendum entered and electronically signed by Destiny Booth MD 03/19/24 11:07:
not significant
Original Note:
CDI
- -
CDI:
Physician Documentation Request
Admit Date: 03/17/24 16:55
Dear Doctor Emmy,
Please review the following and provide your response in the progress notes.
Pt admitted with acute on chronic heart failure
Laboratory Tests
03/17/24 03/18/24 03/19/24
13:17 05:09 03:48
Sodium 130 L 131 L 129 L
Based on the above lab values, could you please clarify in the progress notes, the appropriate diagnosis, if significant, that supports the above abnormal lab values and additional evaluation, monitoring and/or treatment rendered:
hyponatremia
insignificant abnormal lab value
Other
Use of terms such as suspected, likely, concern for, or probable (associated with a specific diagnosis that is being evaluated, monitored, or treated as if it exists) are acceptable and can be coded in the inpatient setting, when documented at the
time of discharge.
Thank you,
Bibi Montoya RN, BSN
CDI Specialist
Available via [place] [employer]
Please use your independent medical judgment in providing your response.
--- NOTE | 2024-03-19 11:38 | CM ---
Chart reviewed. Patient is independent of ADLS, lives with her in a split level, 3 NATALIE, 0 DME. Patient with no needs. Plan is to return home.
--- NOTE | 2024-03-19 12:05 | PTCARENOTE ---
d/c instructions read to pt and pt verbalized understanding. IV and tele removed. pt educated on follow-up and medication adherence. pt left via wheelchair with staff member. pt left with belongings, educational packets and scripts.
--- NOTE | 2024-03-19 15:41 | W.DCSUMMARY ---
Discharge Summary
Discharge Data
Date of Admission: 03/17/24
Date of Discharge: 03/19/24
-
Pending Results: No
Hospital Course
Primary care physician : Dony Simon
Principal Discharge diagnosis : Acute hypoxemic respiratory failure due to acute on chronic systolic congestive heart failure exacerbation
Chronic Discharge diagnosis : Paroxysmal atrial fibrillation, coronary artery disease, essential hypertension, hyperlipidemia, chronic kidney disease stage III, chronic obstructive pulmonary disease, tobacco use disorder ongoing, gastroesophageal
reflux disease
Hospital Course : Patient is an 79-year-old female who presented to the emergency department with shortness of breath since the day prior to admission. She started feeling short of breath when she actually went to bed. She noticed worsening when
trying to lay flat and awoke the morning of admission with increased breathing issues prompting her to come to the emergency department. She denied recent illness, sick contacts or recent travel. Patient has congestive heart failure with an
ejection fraction of 10 to 15% and is not on any standing diuretic therapy. In addition, her retail merchandising specialist recently stopped her spironolactone. Patient was admitted.
Problem #1: Acute hypoxemic respiratory failure due to acute on chronic systolic congestive heart failure exacerbation. Patient was admitted and seen in consultation by cardiology. Low blood pressure is limited aggressive diuresis as an
outpatient. Patient was given IV Lasix here with improvement in her weight. Curiously, she does not have any lower extremity edema. Patient did undergo echocardiogram here and by visual assessment ejection fraction is 20 to 25%. She has stage II
diastolic dysfunction as well and akinesis of the mid to distal anterior wall and septum. She has mild to moderate aortic regurgitation and mild to moderate tricuspid regurgitation. Amiodarone, digoxin, and Coreg were held due to bradycardia.
Patient was weaned off oxygen with diuresis and weights have improved. She did not meet criteria for home oxygen assessment (even if she did, she is still smoking which would be a contraindication to oxygen therapy). Discharge medications from a
cardiac standpoint include Coreg 6.25 mg twice daily, hydralazine 25 mg twice daily for afterload reduction, Lasix 20 mg Friday and Friday. She was placed on a fluid restriction and has been told to limit her sodium to 2 g daily.
Problem #2: All other medical issues. These include Paroxysmal atrial fibrillation, coronary artery disease, essential hypertension, hyperlipidemia, chronic kidney disease stage III, chronic obstructive pulmonary disease, tobacco use disorder
ongoing, gastroesophageal reflux disease. These medical issues were stable during her hospitalization. Medications were continued as able. Patient was counseled to stop smoking IMMEDIATELY.
Patient is stable for discharge home at this time. If there are any questions regarding this dictation or her hospital stay, please not hesitate to call. Our office number is [phone].
Of note, I believe the patient will do what she wants to do which includes continued smoking, and taking medications as she sees fit. She was counseled about starting anticoagulation which she declined. She was also counseled about considering an
SGLT2 inhibitor but told cardiology that she is allergic to all medications. With her daughters present on admission, I did speak with them regarding how sick she is. They do not seem to understand or appreciate the seriousness of her medical
condition.
Time for discharge 34 minutes.
Procedure findings :
ECHOCARDIOGRAM CONCLUSIONS:
Left ventricle is mildly dilated. Normal left ventricular wall thickness.
Severely reduced left ventricular systolic function. Left ventricular ejection
fraction is 20-25% by visual estimate. Akinesis of the mid to distal anterior
wall and septum as well as the apex consistent with prior LAD territory
infarct. Stage II diastolic dysfunction suggestive of abnormal relaxation and
increased filling pressures.
Normal right ventricular size and function.
Mild to moderate aortic regurgitation.
Mild to moderate tricuspid regurgitation. Estimated pulmonary artery pressure
of 27 mmHg, assuming a right atrial pressure of 3 mmHg.
Compared to prior study dated 01/29/23 which was directly reviewed, LV function
appears slightly more vigorous, EF previously estimated at 10-15%
Discharge Plan
-
Patient Disposition: Home (Routine Discharge)
Discharge Diagnosis/Procedures: Acute hypoxemic respiratory failure due to acute on chronic systolic congestive heart failure with ejection fraction of 10 to 15%, paroxysmal atrial fibrillation, coronary artery disease, essential hypertension,
hyperlipidemia, chronic kidney disease stage III, chronic obstructive pulmonary disease with continued smoking, gastroesophageal reflux disease
Condition: Fair
Diet: 2 Gram Sodium and Restrict fluids to 64 oz
Activity: As tolerated
Driving Restrictions: As prior to admission
Bathing Restrictions: None
Blood Work: BMP as outpt obtain script from family doctor or retail merchandising specialist
Specialty Instructions: Weigh Daily- Call MD for wt gain/loss 3 lbs overnight/5 lbs in 1 week
Activity Restrictions/Additional Instructions:
STOP SMOKING
Referrals:
Reza Hernandez MD [Non-Admitting Privileges] - in less than 1 week
Dony Simon MD [Non-Admitting Privileges] - in less than 1 week
Prescriptions:
New
acetaminophen 325 mg Tablet
650 mg PO Q4HPRN PRN (Reason: mild pain/ fever>100.5F) Qty: 0 0RF
hydralazine 25 mg Tablet
25 mg PO BID Qty: 60 0RF
furosemide 20 mg Tablet
20 mg PO MoWeFr@0800 Qty: 30 0RF
Continued
carvedilol 6.25 mg tablet
6.25 mg PO BID
clopidogrel 75 mg tablet
75 mg PO DAILY
pantoprazole 40 mg tablet,delayed release (DR/EC)
40 mg PO DAILYPRN PRN (Reason: gastrointestinal issue)
lorazepam 1 mg tablet
1 mg PO Q6HPRN PRN (Reason: anxiety)
Patient Comments:
01/28/2023: last filled 01/27/23, 90 tabs for 90 days from [facility]
rosuvastatin 20 mg tablet
20 mg PO HS
amiodarone 200 mg Tablet
200 mg PO DAILY
dicyclomine 20 mg Tablet
20 mg PO Q6HPRN PRN (Reason: gas)
Discontinued
digoxin 125 mcg (0.125 mg) tablet
62.5 mcg PO DAILY
furosemide 20 mg Tablet
20 mg PO DAILY PRN (Reason: swelling) Qty: 30 0RF
Rx Instructions:
Take 20mg daily as needed for swelling or weight gain of 2lbs.
Tylenol Sinus 30-500 mg Tablet
1 tab PO DAILYPRN PRN (Reason: sinus pain)
Discharge Orders:
Discharge Patient (As Directed); Ordered 03/19/24
Ordered By: Destiny Booth
Discharge Date and Time
Discharge Date/Time: 03/19/24 12:07
Print Language: [place] CITIZ[place]
== END 2024-03-19 12:07 | disposition home or self-care (01) | DRG 291 ==
LOC: IVU 16:55
PROVIDERS: Physician Assistant Medical; Registered Nurse; ADMITTING PHYSICIAN Internal Medicine; CONSULT PHYSICIAN Internal Medicine Cardiovascular Disease; EMERGENCY PHYSICIAN Emergency Medicine; FAMILY PHYSICIAN Family Medicine
DX: I13.0 Hypertensive heart and chronic kidney disease with heart failure and stage 1 through stage 4 chronic kidney disease, or unspecified chronic kidney disease (principal); I50.23 Acute on chronic systolic (congestive) heart failure; J96.01 Acute respiratory failure with hypoxia; J44.1 Chronic obstructive pulmonary disease with (acute) exacerbation; Z11.52 Encounter for screening for COVID-19; I5A Non-ischemic myocardial injury (non-traumatic); I48.0 Paroxysmal atrial fibrillation; I25.10 Atherosclerotic heart disease of native coronary artery without angina pectoris; N18.30 Chronic kidney disease, stage 3 unspecified; K21.9 Gastro-esophageal reflux disease without esophagitis; F17.210 Nicotine dependence, cigarettes, uncomplicated; E78.00 Pure hypercholesterolemia, unspecified
CPT/HCPCS: 71045; 80048; 80053; 80061; 80162; 83036; 83605; 83735; 83880; 84439; 84443; 84484; 85025; 85027; 85610; 85730; 87502; 87811; 93005; 93306; 94640; 96374; 96375; 97162; 97165; 99291; 99406; Q9950

== ENCOUNTER 2025-02-13 16:46 | Inpatient (IN) | payer OTHER, SELFPAY ==
[2025-02-13] VITALS (16 sets, daily range): BP systolic 95–145; BP diastolic 51–98; PULSE 2–60; BMI 17.7
--- NOTE | 2025-02-13 15:35 | ED.GENMED ---
History of Present Illness
General
Chief Complaint: Breathing Problem
Source: patient
Exam Limitations: none
Time Seen by Provider: 02/13/25 15:16
History of Present Illness
History of Present Illness:
80-year-old female presents in respiratory distress. Apparently started only hours before ER arrival. Had some upper back pain last night. No acute recent infectious symptoms. She has had a history of respiratory distress in the past. Has not
required intubation. Has known COPD and severe cardiomyopathy. Denies chest pain fever or cough at this time.
Past History
Past History
ED Past Medical History: CAD, CHF, COPD, HTN and Other (Dissection)
ED Past Surgical History: Cardiac and Other (Aortic dissection repair ICD placement)
Social History
Tobacco: Non-smoker
Personal:
Living: with family
Review of Systems
Review of Systems
All Other Systems: Not applicable
Constitutional: Denies fever or chills
Cardiac: Denies chest pain or syncope
ABD/GI: Reports no symptoms
Phy Exam
Physical Exam
Physical Exam:
GENERAL: Presents in respiratory distress. Eyes closed however able to nod and answer questions.
EYE: Orbits normal.
NECK: Supple, no significant adenopathy.
ENT: Pharynx without erythema
CARDIAC: Borderline tachycardic and regular. Pacemaker defibrillator upper chest wall
LUNGS: Significant tachypnea. Decreased breath sounds in the upper lungs. Crackles in both bases
ABDOMEN: Soft, without focal tenderness or distention
NEUROLOGICAL: Alert. Able to respond and follow commands.
SKIN: Warm and dry, no rash or lesion, no discoloration, skin intact.
MUSCULOSKELETAL: No edema,no deformity.Good color
Scores
Heart Failure Risk
Heart Failure Risk Score: Yes
History of Stroke or TIA: No
History of intubation for respiratory distress: No
Heart rate on ED arrival >/= 110: No
SaO2 <90% on arrival on room air: Yes
HR >/=110 during 3min walk test (or too ill to perform test): Yes
ECG has acute ischemic changes: No
Urea >/=12mmol/L (BUN 33.6mg/dL): No
Serum CO2>/=35mmol/L: No
Troponin I or T elevated to LA Level (0.4mg/dL): No
NT-proBNP >/=5,000ng/L (5,000pg/ml): Yes
HF Risk Score: 4
Admission Status: HIGH RISK 26.1% Consider SNF treatment or admission to hospital
Course
Orders/Labs/Results
Orders:
Orders
02/13/25 15:16
Electrocardiogram (*1) Stat
Reason for Study: Other
Other Reason for Exam: chest pain
Cardiac Monitoring- Treatment ONCE
EKG- Treatment ONCE
IV Insert/Care/Rem.- Treatment PRN
Albuterol Sulfate [Ventolin Nebules] 7.5 mg INH R NOW STA
Dexamethasone Sod Phosphate [Decadron] 10 mg IV NOW STA
Ipratropium/Albuterol Sulfate [Duoneb] 3 ml INH R NOW STA
CR Chest Portable - 1 View Urgent
Comment:
Reason For Exam: Short of breath
Reason Study Needs to be Portable: Patient Unstable
Bipap [RESP] Stat
Patient to use own unit?: No
Inspiratory Pressure (cm H2O): 12
Expiratory Pressure (cm H2O): 5
O2 Therapy [RESP] Stat
Titrate/Wean O2 to maintain O2 sat greater than (%): 94
02/13/25 15:28
Arterial Blood Gas Urgent
%Oxygen/Room Air: 8
Basic Metabolic Panel Urgent
Complete Blood Count/With Diff Urgent
NT-proBNP Urgent
Troponin I Urgent
02/13/25 15:31
Furosemide [Lasix] 40 mg IV NOW STA
02/13/25 15:32
COVID-19 Antigen Urgent
Source: Nasal Swab
Influenza A+B Rapid Molecular Urgent
VILLA Source: Nasal Swab
Specimen Description:
02/13/25 16:28
Admit/Transfer Patient As Directed
Co-Sign Provider:
Level of Care: Inpatient admission
Assign to:: IMU- Intermediate Care
Physician / Group: laura
Diagnosis: hypoxemic/hypercarbic respiratory failure chf exacerbation/copd exacerbatio
Reason for Hospitalization: hypoxemic/hypercarbic respiratory failure chf exacerbation/copd exacerbatio
Expected length of stay greater than two midnights?: Yes
ELOS- Estimated Length of Stay in days: 2
I certify the patient meets the requirements for IP care: Yes
Code Status As Directed
Resuscitation Status: Full Code
PRN Pain Medication Management As Directed
May give lesser potent ordered pain med per pt: Yes
preference::
Protocol:: Medication orders for pain may be administered in a
manner that supports deferring to patient preference
when the pt is:
- Requesting an ordered lesser potent pain medication.
Least to most potent pain medications are defined
as: acetaminophen < NSAID < tramadol < opioids
(morphine, oxycodone, hydromorphone).
- Requesting a lesser dose of the same medication IF
ORDERED.
- Requesting a less intrusive route of administration
if both routes are prescribed by the provider (PO <
IV).
Abnormal Lab Results
02/13/25
15:28
WBC 18.5 H 10^3/uL
(4.8-10.8)
MCV 77.6 L fL
(81.0-99.0)
MCH 24.6 L pg
(27.0-31.0)
MCHC 31.6 L g/dL
(33.0-37.0)
RDW 17.8 H %
(11.5-14.5)
Abs Immat Gran (auto) 0.1 H 10^3/uL
(0-0.05)
Absolute Neuts (auto) 13.1 H 10^3/uL
(1.4-6.5)
Absolute Lymphs (auto) 4.1 H 10^3/uL
(1.2-3.4)
Absolute Monos (auto) 1.3 H 10^3/uL
(0.1-0.6)
pH 7.25 L
(7.35-7.45)
pCO2 52 H mmHg
(32-35)
pO2 75 L mmHg
(83-108)
Sodium 127 L mmol/L
(135-145)
Chloride 92 L mmol/L
(98-107)
BUN 23 H mg/dl
(7-17)
Creatinine 1.3 H mg/dL
(0.6-1.0)
Glucose 257 H mg/dl
(70-99)
02/13/25 15:28
02/13/25 15:28
Vital Signs
Initial and Last Documented VS:
Initial Vital Signs
Pulse Ox
90
02/13/25 15:15
Last Documented Vital Signs
Pulse Resp BP Pulse Ox
90 26 132/81 96
02/13/25 17:15 02/13/25 17:15 02/13/25 17:15 02/13/25 16:40
MDM/Problems Addressed
Differential Diagnosis Includes:
Patient with relatively sudden onset of respiratory distress. History of COPD but with sudden onset would consider pulmonary edema. She does have crackles in the bases. BiPAP ordered immediately. Nebulizer treatment steroids Lasix. Blood
pressure borderline for nitroglycerin. COVID and flu testing done for completeness although doubt infectious issue. Chest x-ray with some interstitial changes nonspecific in nature. Discussed with patient and family about intubation which they
would request if needed. We will try everything reasonable to hold off on intubation if possible. Clearly warrant
*Critical Care Note
Total Time (30-74mins, 75-104mins- exclusive of procedures): 45
Data Reviewed
Review of Other/Old Records Reveals: Labs, Records, Radiology Studies, Testing and Discharge Summary
Update Note
Update Note:
1550... Multiple rechecks. Patient remains with her eyes closed but is fully alert responding and answering questions nodding responding appropriately. She remains warm and dry. Pulse ox is 90 to 92%. She notes no digression of her symptoms
although only minimal improvement at this time. Will continue very close observation with impending intubation with any digression of symptoms. Family updated.
1615... Multiple frequent rechecks. Family in the room. Updated multiple times. Patient seems to be turning the corner in a positive direction. I did slightly increase her nasal cannula but this significantly increased her pulse ox. I have
backed down on that. She remains fully alert and responding. All consistent with CHF and COPD.
ED Attending Note
-
Portions of this chart may have been created with voice recognition software.� Occasional wrong word or��sound alike� substitutions may have occurred due to the inherent limitations of voice recognition software.
Discharge Plan
Departure
Patient Disposition: Admit
Date of Disposition: 02/13/25
Time of Disposition: 16:13
Admit to: IVU
Presentation/result/management discussed w/ accepting MD/DO: Hospitalist
Discharge Problem:
Respiratory distress, Flash pulmonary edema/COPD, Hyponatremia
Interventions
Interventions:
*Risk Screen - Suicide Last Done: 02/13/25 15:15
*General Assessment Last Done: 02/13/25 15:15
*Neglect/Abuse Screening Last Done: 02/13/25 15:15
*ED- Fall Risk Assessment Last Done: 02/13/25 15:15
ED- Cardiac Assessment Last Done: 02/13/25 15:15
ED- Pulmonary Assessment Last Done: 02/13/25 16:40
[2025-02-13 15:36] LABS: B.E. -4.8 mmol/L; HCO3 22.8 mmol/L (21-28); O2 Saturation % 95.1 % (94-98); PCO2 52 mmHg (32-35); PO2 75 mmHg (83-108); pH 7.25 (7.35-7.45)
[2025-02-13 15:42] LABS: % Basophils 0.1 % (0-2); % Eosinophils 0.1 % (0-6); % Immature Granulocytes 0.5 % (0-0.5); % Monocytes 6.8 % (1.7-9.3); % Neutrophils 70.5 % (42.2-75.2); Absolute Immature Granulocytes 0.1 10^3/uL (0-0.05); Absolute Lymphocytes 4.1 10^3/uL (1.2-3.4); Absolute Monocytes 1.3 10^3/uL (0.1-0.6); Absolute Neutrophils 13.1 10^3/uL (1.4-6.5); Hematocrit 38.9 % (37.0-47.0); Hemoglobin 12.3 g/dL (12.0-16.0); Mean Corp Hgb Conc. 31.6 g/dL (33.0-37.0); Mean Corpuscular Hgb 24.6 pg (27.0-31.0); Mean Corpuscular Volume 77.6 fL (81.0-99.0); Mean Platelet Volume 9.9 fL (7.4-10.4); Nucleated Red Blood Cells % 0 %; Platelet Count 232 10^3/uL (130-400); Red Blood Cell Count 5.01 10^6/uL (4.20-5.40); Red Cell Dist. Width 17.8 % (11.5-14.5); White Blood Cell Count 18.5 10^3/uL (4.8-10.8)
[2025-02-13] MEDS: VENTOLIN NEBULES 7.5 MG INH (15:48)
[2025-02-13] MEDS: DECADRON 10 MG IV (15:49)
[2025-02-13] MEDS: LASIX 40 MG IV (15:49)
[2025-02-13] MEDS: DUONEB 3 ML INH ×2 (15:49→19:32)
[2025-02-13 15:53] LABS: Blood Urea Nitrogen 23 mg/dl (7-17); Calcium 8.9 mg/dl (8.4-10.2); Carbon Dioxide 26 mmol/L (22-30); Chloride 92 mmol/L (98-107); Glucose 257 mg/dl (70-99); Potassium 4.6 mmol/L (3.5-5.1); Sodium 127 mmol/L (135-145); eGFR 41.31
[2025-02-13 16:06] LABS: NT-proBNP 16900 pg/ml; Troponin I < 0.012 ng/ml
--- NOTE | 2025-02-13 16:30 | HPS.HSE ---
Addendum entered and electronically signed by Parris Santo MD 02/13/25 16:37:
Patient had a steroid epidural injection recently for sciatica and has been off of Plavix for a week. Leukocytosis could likely be secondary to steroid epidural injection.
EKG also shows sinus tachycardia with occasional PVCs, left bundle branch block, previously she had LVH with QRS widening and repolarization abnormality.
Original Note:
Family Physician
-
Family Physician: Dony Simon
Chief Complaint
-
shortness of breath
History of Present Illness
80-year-old female past medical history of COPD paroxysmal atrial fibrillation, chronic HFrEF with ICD, CAD status post stent in 2017, aortic dissection s/p repair, hypertension, hyperlipidemia, CKD 3, tobacco use disorder, GERD, presenting with
shortness of breath starting last night. Patient had some upper back pain last night. No cough. No fevers or chills. No lower extremity edema. No chest pain. No weight gain.
She has been compliant with her 20 mg of Lasix per day.
She smokes 3 cigarettes a day. Denies alcohol.
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
Medical History
Past Medical History
Past Medical History: Reports Other ( COPD paroxysmal atrial fibrillation, chronic HFrEF with ICD, CAD status post stent in 2017, aortic dissection s/p repair, hypertension, hyperlipidemia, CKD 3, tobacco use disorder, GERD)
Past Surgical History: Reports Other (Cardiac and Other (Aortic dissection repair ICD placement))
Social History
Tobacco: Non-smoker
Alcohol: None
Drug: None
Family History
Family History: Not pertinent
Allergies / Home Medications
Allergies reflects when Allergies were last updated in [facility].
Home Medications with original date entered in [facility]
Allergy/Medication List:
Allergies
Allergy/AdvReac Type Severity Reaction Status Date / Time
ibuprofen Allergy Unknown Unknown Verified 02/13/25 15:24
levofloxacin [From Levaquin] Allergy Unknown Unknown Verified 02/13/25 15:24
morphine Allergy Unknown Unknown Verified 02/13/25 15:24
Penicillins Allergy Unknown Unknown Verified 02/13/25 15:24
Home Medications
carvedilol 6.25 mg tablet 6.25 mg PO BID Heart disease/condition 01/28/23
clopidogrel 75 mg tablet 75 mg PO DAILY Blood clot prevention/tx 01/28/23
lorazepam 1 mg tablet 1 mg PO Q6HPRN PRN anxiety 01/28/23
pantoprazole 40 mg tablet,delayed release 40 mg PO DAILYPRN PRN gastrointestinal issue 01/28/23
rosuvastatin 20 mg tablet 20 mg PO HS High cholesterol 01/28/23
amiodarone 200 mg tablet 200 mg PO DAILY Arrhythmia 03/17/24
dicyclomine 20 mg tablet 20 mg PO Q6HPRN PRN gas 03/17/24
acetaminophen 325 mg tablet 650 mg (2 x 325 mg) PO Q4HPRN PRN mild pain/ fever>100.5F #0 tabs 03/19/24
furosemide 20 mg tablet 20 mg PO MoWeFr@0800 Fluid retention/Swelling #30 tabs 03/19/24
hydralazine 25 mg tablet 25 mg PO BID Blood pressure #60 tabs 03/19/24
Review of Systems
-
History Source: Patient
A 12 point ROS was completed and negative except as noted: Yes
Constitutional: Reports No Symptoms
EENT: Reports No Symptoms
Respiratory: Reports See HPI
Cardiac: Reports See HPI
Abdomen/GI: Reports No Symptoms
: Reports No Symptoms
Musculoskeletal: Reports No Symptoms
Skin: Reports No Symptoms
Neurological: Reports No Symptoms
Endocrine: Reports No Symptoms
Hematologic/Lymphatic: Reports No Symptoms
Psych: Reports No Symptoms
Physical Exam
Vital Signs
Vital Signs
Pulse Resp BP Pulse Ox
99 31 145/83 94
02/13/25 16:00 02/13/25 16:00 02/13/25 16:00 02/13/25 15:17
Physical Exam
General: Well Developed, Well Nourished and No Apparent Distress
HEENT: NormoCephalic, Moist mucous membranes and Atraumatic
Respiratory: Clear
Cardiac: S1/S2 and Regular Rhythm; No Murmur or Rub
GI: Soft, Non Tender, Non Distended and Normal Bowel Sounds; No Organomegaly
Rectal: Deferred by Provider
Musculoskeletal: No Clubbing, No Cyanosis and No Edema
Skin: No Rash
Neuro: Nonfocal/grossly intact
Laboratory Results
-
02/13/25 15:28
02/13/25 15:28
Laboratory Results
pH 7.25 (7.35-7.45) L 02/13/25 15:
pCO2 52 mmHg (32-35) H 02/13/25 15:28
pO2 75 mmHg (83-108) L 02/13/25 15:28
HCO3 22.8 mmol/L (21-28) 02/13/25 15:28
Troponin I < 0.012 ng/ml 02/13/25 15:28
Data Reviewed
-
Lab Data: Labs Reviewed by me
Old Records: Reviewed
Impression/Plan
-
IMPRESSION:
PLAN:
# Acute on chronic hypercarbic/hypoxemic respiratory failure acute on chronic HFrEF exacerbation/COPD exacerbation
# Chronic HFrEF with ICD
- Chest x-ray shows widespread prominent pulm interstitial markings likely chronic, acute edema or pneumonitis cannot be excluded
- Leukocytosis
- Cardiac BNP of 16,000 from 7000 previous
- Check I's and O's
-COVID and flu pending
- Lasix 40 IV daily
- Patient on BiPAP, with improvement
- DuoNebs, dexamethasone 4 mg every 12
# Worsening of chronic hyponatremia secondary to heart failure
- Monitor with diuresis
Paroxysmal atrial fibrillation
- Continue amiodarone
- Continue Coreg
CAD status post tenting 2016
- Continue Plavix
Aortic dissection s/p repair
Essential hypertension
- Continue hydralazine
Hyperlipidemia
- Continue statin
CKD 3
- Renal function at baseline
Tobacco use disorder
- Currently smokes 3 cigarettes a day
GERD
- Continue Protonix
Anxiety/depression
- Continue Ativan
Full code
DVT prophylaxis�heparin
Cardiac diet
[2025-02-13 16:57] LABS: COVID-19 Antigen Negative (Negative)
--- NOTE | 2025-02-13 18:31 | PTCARENOTE ---
Patient arrived to room 3350 via stretcher with bipap 12/5 , 8 liters in use. Patient orthopneic, and dyspnea on exertion. Rectal temp 97 upon arrival. Warm blankets applied. Purewick in use, patient was able to void. Family at bedside. Patient
stating that her jaw is hurting from facemask. Will contact respiratory for evaluation.
[2025-02-13 18:34] LABS: Troponin I 0.027 ng/ml
[2025-02-13] MEDS: PACERONE 100 MG PO (20:26)
[2025-02-13] MEDS: HEPARIN 5000 UNITS SC (20:26)
[2025-02-13] MEDS: COREG 6.25 MG PO (20:26)
[2025-02-13] MEDS: CRESTOR 20 MG PO (20:26)
[2025-02-14] VITALS (15 sets, daily range): BP systolic 98–134; BP diastolic 48–61; PULSE 2–60; BMI 16.6
--- NOTE | 2025-02-14 00:34 | PTCARENOTE ---
assumed care of patient. pt is AAOx3, able to make needs known. pt asking to come off bipap to try to eat some dinner. placed on 6L NC, 98%. pt did get a bit drowsy during dinner and was placed back on bipap, 99%. pt states her breathing feels much
better than before. still a little SOB on exertion and orthopneic at times. purwick in place while in respiratory distress. no c/o pain at this time. care ongoing.
[2025-02-14 01:31] LABS: Troponin I 0.312 ng/ml
--- NOTE | 2025-02-14 01:35 | PTCARENOTE ---
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 troponin being trended, next one due at 0630. no complaints of chest pain at present. care ongoing.
[2025-02-14] MEDS: DECADRON 4 MG IV (05:21)
[2025-02-14] MEDS: TYLENOL 650 MG PO (05:38)
--- NOTE | 2025-02-14 05:49 | PTCARENOTE ---
pt requesting to be taken off bipap. respiratory notified. bipap off and pt placed on 6L 99%. pt reports feeling much better this AM.
[2025-02-14 05:52] LABS: % Eosinophils 0.1 % (0-6); % Immature Granulocytes 0.5 % (0-0.5); % Monocytes 3.4 % (1.7-9.3); Absolute Immature Granulocytes 0.1 10^3/uL (0-0.05); Absolute Lymphocytes 0.9 10^3/uL (1.2-3.4); Absolute Monocytes 0.3 10^3/uL (0.1-0.6); Absolute Neutrophils 8.2 10^3/uL (1.4-6.5); Hematocrit 35.3 % (37.0-47.0); Hemoglobin 11.4 g/dL (12.0-16.0); Mean Corp Hgb Conc. 32.3 g/dL (33.0-37.0); Mean Corpuscular Hgb 24.2 pg (27.0-31.0); Mean Corpuscular Volume 74.8 fL (81.0-99.0); Mean Platelet Volume 9.8 fL (7.4-10.4); Nucleated Red Blood Cells % 0 %; Platelet Count 186 10^3/uL (130-400); Red Blood Cell Count 4.72 10^6/uL (4.20-5.40); Red Cell Dist. Width 17.2 % (11.5-14.5); White Blood Cell Count 9.4 10^3/uL (4.8-10.8)
[2025-02-14 06:24] LABS: ALT (SGPT) 19 U/L (0-35); AST (SGOT) 21 U/L (14-36); Albumin 3.6 g/dl (3.5-5.0); Alkaline Phosphatase 94 U/L (38-126); Blood Urea Nitrogen 31 mg/dl (7-17); Calcium 8.7 mg/dl (8.4-10.2); Carbon Dioxide 29 mmol/L (22-30); Chloride 93 mmol/L (98-107); Estimated Creatinine Clearance 28 ml/min; Glucose 116 mg/dl (70-99); Potassium 4.7 mmol/L (3.5-5.1); Sodium 131 mmol/L (135-145); Total Bilirubin 0.7 mg/dl (0.2-1.3); eGFR 45.48
[2025-02-14 06:35] LABS: Troponin I 0.324 ng/ml
[2025-02-14] MEDS: PROTONIX 40 MG PO (07:44)
[2025-02-14] MEDS: PACERONE 100 MG PO ×2 (07:44→21:08)
[2025-02-14] MEDS: PLAVIX 75 MG PO (07:44)
[2025-02-14] MEDS: COREG 6.25 MG PO ×2 (07:44→21:06)
[2025-02-14] MEDS: HEPARIN 5000 UNITS SC ×2 (07:45→21:07)
[2025-02-14] MEDS: FARXIGA 10 MG PO (07:45)
[2025-02-14] MEDS: LASIX 40 MG IV (07:45)
[2025-02-14] MEDS: NORCO 5/325 1 TABLET PO ×3 (07:45→23:12)
[2025-02-14] MEDS: DUONEB 3 ML INH ×2 (08:11→11:17)
[2025-02-14] MEDS: NON-FORMULARY ITEM 10 MG PO (09:46)
--- NOTE | 2025-02-14 10:53 | CON.PUL ---
Consultation
Consultation Request
Date/Time Consultation Requested: 02/14/2025
Date/Time Consultation Performed: 02/14/2025
Requesting Provider: Dr. Santo
Performing Provider: Dr. Jayy Brennan
Reason for Consultation: Acute on chronic hypoxemic respiratory failure-acute exacerbation COPD
Medical History
-
Chief Complaint: dyspnea
History of Present Illness:
80-year-old woman with past medical history significant for? COPD, paroxysmal atrial fibrillation, heart failure with reduced ejection fraction, on chronic amiodarone therapy, ICD in place, prior coronary artery disease with stents, prior history
of aortic dissection, chronic kidney disease, tobacco abuse came to the hospital complaining of shortness of breath for 1 night. Denies any cough. Denies significant phlegm production. Denies fevers or chills.
Denies weight gain, PND, orthopnea leg edema.
Patient has been compliant with her low-dose oral Lasix.
Smokes about 3 cigarettes/day. Does not take long-acting bronchodilators.
Past Medical History
Past Medical History: Other (see A&P for PMH/PSH)
Social History
Tobacco: Smoker (0.5 packs/day.)
Alcohol: Former
Drug: None
Personal:
Living: With Family
Employment: Not Employed
Family History
Family History: Reviewed & Not Pertinent
Allergies / Home Medications
Allergies
Allergy/AdvReac Type Severity Reaction Status Date / Time
ibuprofen Allergy Unknown Unknown Verified 02/13/25 15:24
levofloxacin [From Levaquin] Allergy Unknown Unknown Verified 02/13/25 15:24
morphine Allergy Unknown Unknown Verified 02/13/25 15:24
Penicillins Allergy Unknown Unknown Verified 02/13/25 15:24
Home Medications
�Medication �Instructions �Recorded �Confirmed �Last Taken �Type
carvedilol 6.25 mg tablet 6.25 mg PO BID Heart 01/28/23 02/13/25 02/12/25 History
disease/condition
clopidogrel 75 mg tablet 75 mg PO DAILY Blood clot 01/28/23 02/13/25 02/12/25 History
prevention/tx
lorazepam 1 mg tablet 1 mg PO Q6HPRN PRN anxiety 01/28/23 02/13/25 02/13/25 History
pantoprazole 40 mg tablet,delayed 40 mg PO DAILY Gastrointestinal 01/28/23 02/13/25 02/12/25 History
release Issue
rosuvastatin 20 mg tablet 20 mg PO HS High cholesterol 01/28/23 02/13/25 02/12/25 History
dicyclomine 20 mg tablet 20 mg PO Q6HPRN PRN cramping 03/17/24 02/13/25 Unknown History
albuterol sulfate 90 mcg/actuation 2 puff inhalation R Q6HPRN PRN sob 02/13/25 02/13/25 02/13/25 History
aerosol inhaler
amiodarone 100 mg tablet 100 mg PO BID Arrhythmia 02/13/25 02/13/25 02/12/25 History
clonazepam 0.5 mg tablet 0.5 mg PO HSPRN PRN anxiety 02/13/25 02/13/25 Unknown History
digoxin 125 mcg (0.125 mg) tablet 62.5 mcg PO DAILY Arrhythmia 02/13/25 02/13/25 02/12/25 History
empagliflozin 10 mg tablet 10 mg PO DAILY Heart 02/13/25 02/13/25 02/12/25 History
(Jardiance) Disease/Condition
fluticasone propionate 50 1 spray intranasal DAILYPRN PRN 02/13/25 02/13/25 Unknown History
mcg/actuation nasal allergies
spray,suspension
furosemide 20 mg tablet 20 mg PO DAILY Fluid 02/13/25 02/13/25 02/12/25 History
retention/Swelling
gabapentin 100 mg capsule 100 mg PO HSPRN PRN nerve pain 02/13/25 02/13/25 02/12/25 History
hydrocodone 5 mg-acetaminophen 325 1 tab PO [id number] PRN severe pain 02/13/25 02/13/25 Unknown History
mg tablet
hydroxyzine HCl 25 mg tablet 25 mg PO TIDPRN PRN itching 02/13/25 02/13/25 Unknown History
ipratropium 0.5 mg-albuterol 3 mg 3 ml inhalation R DAILYPRN PRN sob 02/13/25 02/13/25 02/13/25 History
(2.5 mg base)/3 mL nebulization
soln
magnesium oxide 400 mg (241.3 mg 400 mg PO DAILYPRN PRN leg cramps 02/13/25 02/13/25 02/12/25 History
magnesium) tablet
tetrahydrozoline 0.05 % eye drops 1 drp ophthalmic (eye) DAILYPRN 02/13/25 02/13/25 Unknown History
(Visine) PRN itchy eyes
vericiguat 10 mg tablet (Verquvo) 10 mg PO DAILY Heart Failure 02/13/25 02/13/25 02/12/25 History
Review of Systems
-
History Source: Patient
All other systems: Negative unless noted
Vitals / Labs / Diagnostic Testing
Vital Signs
Temp Pulse Resp BP Pulse Ox
97.3 F 66 21 115/52 96
02/14/25 07:40 02/14/25 10:00 02/14/25 10:00 02/14/25 10:00 02/14/25 10:00
Lab Data
02/14/25 05:35
02/14/25 05:35
Laboratory Results
02/13/25
15:28
pH 7.25 L
pCO2 52 H
pO2 75 L
HCO3 22.8
O2 Delivery Level
Microbiology
02/13/25 15:32 Nasal Swab Influenza Types A & B (JUDIE) - Final
Negative for Influenza A & B, NAAT
Negative results must be combined with clinical observations
and patient history.
Nucleic Acid Amplification test (NAAT)performed on the
[employer] ID NOW platform.
Diagnostic Testing:
Physical Exam
-
HEENT: Normocephalic
Cardiovascular: S1/S2
Respiratory: Wheeze (n), Rales (Bibasilar), Accessory Resp Muscle Use (n) and Other (Good air movement)
GI: Soft and Non Distended
Neurology: Awake, AO x 3 and No Motor Deficits
Skin: Warm
General: Comfortable
Assessment
-
80-year-old woman with past medical history noted. Came to the hospital complaining of shortness of breath from 1 night. She was found to have abnormal chest x-ray, significant increased proBNP, hypoxemic and hypercapnic. Requiring noninvasive
mechanical ventilation. We were consulted for evaluation of of possible COPD. Patient is a smoker. No available pulmonary function testing. Does not follow-up locally.
She does not take any long-acting bronchodilators.
Acute on chronic hypoxemic respiratory failure/acute hypercapnic respiratory failure requiring noninvasive mechanical ventilation-BiPAP.
AB.25/52/75.
Chest x-ray: Increased interstitial markings bilaterally-suspect pulmonary vascular congestion.
COVID-negative/flu negative.
Acute on chronic heart failure with reduced ejection fraction
Positive troponins
proBNP [id number]
Leukocytosis possibly reactive
Recent epidural infection for back pain and sciatica
Conditions present prior admission:
Paroxysmal atrial fibrillation
COPD
Chronic heart failure with reduced ejection fraction-ICD in place
Prior coronary stenting 2016
History of aortic dissection status post repair
Hypertension
Chronic kidney disease
GERD
History of tobacco abuse
Hyperlipidemia
Assessment and plan:
Clinical picture more consistent with acute heart failure with reduced ejection fraction-pulmonary edema on chest x-ray, increased proBNP rapid improvement.
This morning oxygen has been weaned off.
No longer requiring BiPAP.
Patient feels close to baseline.
Denies phlegm production.
Lung exam without bronchospasm-moving good air. Able to speak in full sentences.
Patient does not follow-up with pulmonary-does not recall having pulmonary function testing. Does not take long-acting bronchodilators. She has a nebulizer and albuterol as needed. Prior CT chest from 2022 without significant parenchymal lung
abnormalities. No evidence for emphysema.
-
Bibasilar crackles on exam-not bronchospastic.
I will discontinue IV corticosteroids
Discontinue BiPAP
Will discontinue [id number] nebulizers may use on as-needed basis.
No indication for antibiotics
Eventual repeat chest x-ray to document improvement in bilateral increased interstitial markings.
-
I recommend outpatient pulmonary follow-up. She is agreeable. My information will be left in the chart.
-
Continue cardiac management
Trend troponins
Diuretics
Low-sodium diet
-
Will continue to follow briefly.

Data reviewed:
Echocardiogram 03/18/2024: Ejection fraction 20 to 25%. Stage II diastolic dysfunction. Normal right ventricular size and function. Mild to moderate AR. Mild to moderate TR.
-
Chest x-ray 02/13/2025: Reviewed showed widespread prominent pulmonary interstitial markings suggestive of pulmonary vascular congestion.
CT chest 01/28/2023: Reviewed, showed no evidence for pulmonary embolus. Tiny bilateral pleural effusions. I did not appreciate pulmonary fibrosis or emphysema.
[2025-02-14] MEDS: LANOXIN 62.5 MCG PO (11:08)
--- NOTE | 2025-02-14 11:47 | PTCARENOTE ---
Patient AOx3. A-paced with NSR, PVC's and BBB on monitor. BP stable. Weaned to RA with SpO2 greater than 92%. Patient utilizes purewick due to frequent urination. Poor appetite. Patient complains of chronic back pain. PRN pain medication
administered per MAR. Call albarado within reach, bed in lowest position, and bed of wheels locked.
--- NOTE | 2025-02-14 13:07 | CON.CAR ---
Addendum entered and electronically signed by Brock Leo DO 02/14/25 16:39:
I saw and examined the patient.
The Solvent Recoverer's note was reviewed and I agree with the note.
Comment:
Plan:
She appears volume overloaded with a history of ischemia cardiomyopathy, HX ICD, status post PCI LAD 2016, on Plavix.
Cont IV lasix diuresis; her wt was up 5 lbs from her dry wt on admit. proBNP 16,900 which is higher than previous. Her creatinine remained stable.
Monitor daily weights I's and O's and creatinine.
Check echo; prior EF was 20-25%
Obtain prior records. She follows with [facility] cardiology. She has the ambulance take her to [place] but they took her to [facility] due to her symptomatic presentation.
Continue amiodarone and digoxin for history of paroxysmal atrial fibrillation. She declines anticoagulation now and historically.
Continue medical therapy of non-AL troponin.
Continue Coreg, Farxiga, and Verquvo
Wean O2 as able. Continue pulmonary toilet.
Discussed with at bedside.
Original Note:
Consultation
Consultation Request
Date/Time Consultation Requested: 02/14/2025
Date/Time Consultation Performed: 02/14/2025
Requesting Provider: Dr. Mccollum
Performing Provider: Parris Blum PA-C for Dr. Leo
Reason for Consultation: CHF
Medical History
-
History of Present Illness:
HPI: Lili is an 80 year old female with PMH of chronic HFrEF, ICM, paroxysmal atrial fibrillation, subcutaneous ICD, CAD w/ LAD stent, HTN, HLD, PVCs, tobacco abuse, aortic dissection s/p repair, and raynauds. Presented to [facility] ER for evaluation
of sudden onset severe SOB. She had been feeling well, but in afternoon 5/4 suddenly became SOB and was in respiratory distress, prompting ER evaluation. In ER, found to be in acute heart failure with elevated proBNP of 16,900 and chest xray with
interstitial edema. Also concern for COPD exacerbation. Started on IV lasix and IV steroids and admitted for further management. She has had no fevers or cough. No weight gain or edema. Pulmonology evaluated patient and felt COPD exacerbation less
likely, so IV steroids stopped. With diuresis, breathing improving. Was requiring BiPAP on admission, now down to 2L NC.
PMH:
Chronic HFrEF
ICM EF 20-25% by echo 03/18/2024
Paroxysmal Afib
Chronic amiodarone and digoxin therapy
Not anticoagulated by patient choice due to h/o reported side effects
Crowdbaron subcutaneous ICD 05/2017
CAD
NSTEMI w/ LAD BRENNAN 03/2017
Hypertension
Hyperlipidemia
PVCs
Active smoker
h/o Type A Aortic dissection s/p open heart repair/stented at [facility] 03/2017
h/o post-op complicated with clot around the stent and started Eliquis 03/2017
Benign breast disease - lumpectomy
Colon polypectomy
Raynaud's
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
Past Medical History
Past Medical History: Other (in HPI)
Past Surgical History: Cardiac (aortic dissection s/p open heart repair and stented in 2016 @ [facility])
Social History
Tobacco: Smoker
Alcohol: Occasional
Drug: None
Personal:
Living: With Family
Family History
Family History: Cancer
Allergies / Home Medications
Allergy/AdvReac Type Severity Reaction Status Date / Time
ibuprofen Allergy Unknown Unknown Verified 02/13/25 15:24
levofloxacin [From Levaquin] Allergy Unknown Unknown Verified 02/13/25 15:24
morphine Allergy Unknown Unknown Verified 02/13/25 15:24
Penicillins Allergy Unknown Unknown Verified 02/13/25 15:24
�Medication �Instructions �Recorded �Confirmed �Type
carvedilol 6.25 mg tablet 6.25 mg PO BID Heart 01/28/23 02/13/25 History
disease/condition
clopidogrel 75 mg tablet 75 mg PO DAILY Blood clot 01/28/23 02/13/25 History
prevention/tx
lorazepam 1 mg tablet 1 mg PO Q6HPRN PRN anxiety 01/28/23 02/13/25 History
pantoprazole 40 mg tablet,delayed 40 mg PO DAILY Gastrointestinal 01/28/23 02/13/25 History
release Issue
rosuvastatin 20 mg tablet 20 mg PO HS High cholesterol 01/28/23 02/13/25 History
dicyclomine 20 mg tablet 20 mg PO Q6HPRN PRN cramping 03/17/24 02/13/25 History
albuterol sulfate 90 mcg/actuation 2 puff inhalation R Q6HPRN PRN sob 02/13/25 02/13/25 History
aerosol inhaler
amiodarone 100 mg tablet 100 mg PO BID Arrhythmia 02/13/25 02/13/25 History
clonazepam 0.5 mg tablet 0.5 mg PO HSPRN PRN anxiety 02/13/25 02/13/25 History
digoxin 125 mcg (0.125 mg) tablet 62.5 mcg PO DAILY Arrhythmia 02/13/25 02/13/25 History
empagliflozin 10 mg tablet 10 mg PO DAILY Heart 02/13/25 02/13/25 History
(Jardiance) Disease/Condition
fluticasone propionate 50 1 spray intranasal DAILYPRN PRN 02/13/25 02/13/25 History
mcg/actuation nasal allergies
spray,suspension
furosemide 20 mg tablet 20 mg PO DAILY Fluid 02/13/25 02/13/25 History
retention/Swelling
gabapentin 100 mg capsule 100 mg PO HSPRN PRN nerve pain 02/13/25 02/13/25 History
hydrocodone 5 mg-acetaminophen 325 1 tab PO [id number] PRN severe pain 02/13/25 02/13/25 History
mg tablet
hydroxyzine HCl 25 mg tablet 25 mg PO TIDPRN PRN itching 02/13/25 02/13/25 History
ipratropium 0.5 mg-albuterol 3 mg 3 ml inhalation R DAILYPRN PRN sob 02/13/25 02/13/25 History
(2.5 mg base)/3 mL nebulization
soln
magnesium oxide 400 mg (241.3 mg 400 mg PO DAILYPRN PRN leg cramps 02/13/25 02/13/25 History
magnesium) tablet
tetrahydrozoline 0.05 % eye drops 1 drp ophthalmic (eye) DAILYPRN 02/13/25 02/13/25 History
(Visine) PRN itchy eyes
vericiguat 10 mg tablet (Verquvo) 10 mg PO DAILY Heart Failure 02/13/25 02/13/25 History
Review of Systems
-
History Source: Patient
All other systems: Negative unless noted
Physical Exam
Vital Signs
Temp Pulse Resp BP Pulse Ox
97.3 F 66 19 115/52 97
02/14/25 07:40 02/14/25 11:20 02/14/25 11:20 02/14/25 10:00 02/14/25 11:20
Lab Results
02/14/25 05:35
02/14/25 05:35
Troponin I 0.324 ng/ml H* 02/14/25 05:35
Uax-X-Smjnkzetwmd Pept 99848 pg/ml 02/13/25 15:28
Physical Exam
General: Well Developed, Well Nourished and No Apparent Distress
HEENT: Normocephalic and Moist Mucous Membranes
Respiratory: Crackles and Non Labored Respirations
Cardiac: S1/S2, Regular Rhythm and Murmur
Musculoskeletal: No Clubbing and No Cyanosis
Skin: Warm and Dry
Psych: Calm
Impression / Plan
-
PCP: Dr. Simon
Clothing Designer: Dr. Hernandez ([facility] Cardiology [phone])
Impression:
Presented with sudden onset SOB
Acute on chronic HFrEF
Hyponatremia
Elevated troponin
ICM EF 20-25% by echo 03/18/2024
Paroxysmal Afib
Chronic amiodarone and digoxin therapy
Not anticoagulated by patient choice due to h/o reported side effects
Crowdbaron subcutaneous ICD 05/2017
CAD
NSTEMI w/ LAD BRENNAN 03/2017
Hypertension
Hyperlipidemia
PVCs
Active smoker
h/o Type A Aortic dissection s/p open heart repair/stented at [facility] 03/2017
h/o post-op complicated with clot around the stent and started Eliquis 03/2017
Benign breast disease - lumpectomy
Colon polypectomy
Raynaud's
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
Lexiscan nuclear stress test 04/2019:�Large fixed apical/septal defect
LHC 03/2017: 100% proximal LAD thrombotic stenosis status post BRENNAN, [place] 2.84, [place] CI 1.7
Echo 03/2017: EF 20 to 25%, anterior, apical, lateral wall HK, LA 4.2, RSVP 40 to 45 mmHg, no significant valvular disease
Echo 09/2017 :EF 15 to 20% with mild MR/TR, PAP 40-45 mmhg
Echo 01/29/2023: EF 10 to 15%, severe global hypokinesis with mid anteroseptal, mid septal, mid anterior, apical akinesis, stage I diastolic dysfunction, mild AR
Echo 03/18/2024: EF 20-25%, akinesis of the mid to distal anterior wall and septum as well as the apex consistent with prior LAD territory infarct, stage II diastolic dysfunction, mild to moderate AR, mild to moderate TR, estimated PAP 27 mmHg
Echo 02/14/2025: Study pending
Plan:
-Presented with sudden onset shortness of breath. Admitted with acute heart failure exacerbation. proBNP 16,900.
-Continue diuresis with IV Lasix 40 mg daily. Symptomatically improving. Was taking Lasix 20 mg daily as outpatient prior to admission
-Weight down to 106 pounds 02/14. Down 6 pounds this admission. Follow daily weights, I&O's.
-Creatinine stable at 1.2. Follow with diuresis.
-Check echo. Prior echo 03/2024 with EF 20 to 25% as noted above.
-Continue Coreg, Farxiga, and Verquvo
-Known history of paroxysmal A-fib. Not anticoagulated by patient choice due to prior history of GI upset with Eliquis.
-Remains in SR by ECG reviewed by me. Heart rates stable on review of telemetry overnight. Continue Coreg, amiodarone, and digoxin. Check dig level
-Continues on Plavix with history of prior stent in 2017 no chest pain.
-Elevated troponin noted, peaking at 0.324 and trending down thereafter. Suspect nonischemic myocardial injury in the setting of acute heart failure exacerbation.
-Hyponatremia noted. Sodium improving with diuresis.
-Continue Crestor 20 mg daily
-Records requested and reviewed from primary inside sales consultant.
-Wean O2 as able
HPI: Lili is an 80 year old female with PMH of chronic HFrEF, ICM, paroxysmal atrial fibrillation, subcutaneous ICD, CAD w/ LAD stent, HTN, HLD, PVCs, tobacco abuse, aortic dissection s/p repair, and raynauds. Presented to [facility] ER for evaluation
of sudden onset severe SOB. She had been feeling well, but in afternoon 02/13 suddenly became SOB and was in respiratory distress, prompting ER evaluation. In ER, found to be in acute heart failure with elevated proBNP of 16,900 and chest xray with
interstitial edema. Also concern for COPD exacerbation. Started on IV lasix and IV steroids and admitted for further management. She has had no fevers or cough. No weight gain or edema. Pulmonology evaluated patient and felt COPD exacerbation less
likely, so IV steroids stopped. With diuresis, breathing improving. Was requiring BiPAP on admission, now down to 2L NC.
Data Reviewed
-
EKG: Tracing Personally Visualized and interpreted
Radiology: Report Reviewed by me
Labs: Labs Reviewed by me
Old Records: Requested and Reviewed
[2025-02-14 13:37] LABS: Troponin I 0.301 ng/ml
--- NOTE | 2025-02-14 13:48 | PTCARENOTE ---
Dr. Mccollum made aware that patients previous trop was 0.324 and the last one was 0.301. Per Dr. Mccollum, patient does not need anymore trops drawn. Care ongoing.
--- NOTE | 2025-02-14 15:36 | W.PN.HOSP.TC ---
Today's Communication/Plan
-
continue IV Lasix
PT/OT
tele transfer
Assessment / Plan
Assessment / Plan
Assessment:
Acute on chronic hypoxemic respiratory failure/acute hypercapnic respiratory failure requiring noninvasive mechanical ventilation-BiPAP
- weaned to RA and off BiPAP
Acute on chronic HFrEF
Hx of ICD
- continue IV Lasix - requires intensive monitoring of I/Os, weights, lytes
- Echo pending
- GDMT: Coreg/Farxiga/Verquvo
nonischemic myocardial injury in the setting of acute heart failure exacerbation
Hypervolemic hyponatremia
- follow BMP with diuresis
Paroxysmal atrial fibrillation
- continue Coreg/Amiodarone/Digoxin
- patient opts against anticoagulation (hx of GI upset)
COPD without exacerbation
CAD s/p stents 2016
- continue Plavix/BB/Statin
History of aortic dissection status post repair
Essential HTN
CKD stage 3b
- follow BMP with diuresis
GERD
History of tobacco abuse
Hyperlipidemia - statin
Recent back pain/sciatica s/p epidural infection
DVT ppx: SC heparin
Code: Full
Anticipated Discharge: > 48 hours
Subjective/Interval History
-
Date of Service: February 14, 2025
resting comfortably, now off O2
continues with IV Lasix
Objective Data
-
Labs:
Laboratory Results
02/14/25
05:35
WBC 9.4
Hgb 11.4 L
Hct 35.3 L
Plt Count 186
Sodium 131 L
Potassium 4.7
Chloride 93 L
Carbon Dioxide 29
BUN 31 H
Creatinine 1.2 H
Glucose 116 H
Calcium 8.7
Total Bilirubin 0.7
AST 21
ALT 19
Alkaline Phosphatase 94
Vital Signs:
Vital Signs
Temp Pulse Resp BP Pulse Ox
97.3 F 70 20 120/48 94
02/14/25 07:40 02/14/25 14:00 02/14/25 14:00 02/14/25 14:00 02/14/25 14:00
I&O
02/13/25 02/14/25 02/15/25
06:59 06:59 06:59
Output Total 1350 / 1350
Balance -1350 / -1350
Physical Exam
-
General: No Apparent Distress
HEENT: Normocephalic and Atraumatic
Respiratory: Rales
Cardiac: Regular Rhythm and S1/S2
GI: Soft
Neuro: AO x 3
Psych: Calm
Data Reviewed
-
Total Time Spent with Patient (in minutes): 51
Labs: Labs Reviewed by me
--- NOTE | 2025-02-14 16:33 | CM ---
Patient with Dx HF. Room air/off BiPAP. Receiving IV Lasix. PT/OT [place] pending.
Attempted to meet with patient who was working with nursing.
Spoke with patient's Don;
the patient resides with her in a split level house with 3 NATALIE.
The patient was independent in ADLs and ambulation.
No DME or prior SNF.
Prior [facility]
PCP - Dony Simon
Pharmacy - [facility]
volunteers that their daughter is a PT with [facility]
Plan follow up after seen by PT/OT.
--- NOTE | 2025-02-14 19:19 | PTCARENOTE ---
Verbal report given to Brandie GORDON on 3W. Patient transferred via stretcher. Patient belongings sent with patient.
--- NOTE | 2025-02-14 20:49 | RESPNOTE ---
Spoke with patient about what time she will go on [facility] CPAP tonight. She is adamant that she does not want to use the device and feels she no longer needs it. She has been on room air all day.
[2025-02-14] MEDS: CRESTOR 20 MG PO (21:09)
[2025-02-15] MEDS: ATIVAN 1 MG PO (02:14)
[2025-02-15 03:25] VITALS: BP 123/54
--- NOTE | 2025-02-15 04:30 | TRANSFER ---
Pt arrived on unit via stretcher. Pt walked from stretcher to bed. Pt AAOx3, VSS. Call albarado within reach, Plan of care ongoing.
[2025-02-15 05:25] VITALS: BMI 16.5
[2025-02-15 07:05] VITALS: BP 116/57
--- NOTE | 2025-02-15 08:20 | PN.CDI ---
CDI
- -
CDI:
Physician Documentation Request
Admit Date: 02/13/25 16:46
Dear Doctor Veda,
Patient admitted for heart failure.
Please review the following and provide your response in the progress notes.
Clinical Indicators:
Height: 5' 6'
Weight: 102 lbs
BMI: 16.5
If possible, please provide an associated diagnosis related to the abnormal BMI, such as:
Cachectic
Underweight
BMI is not significant
Other
BMI < or = to 19.9
Underweight
Weight Loss
Cachectic
Anorexia
Use of terms such as suspected, likely, concern for, or probable (associated with a specific diagnosis that is being evaluated, monitored, or treated as if it exists) are acceptable and can be coded in the inpatient setting, when documented at the
time of discharge.
Thank you,
Sheri Langston RN, BSN
CDI Specialist
Available via [place] text
Please use your independent medical judgment in providing your response.
--- NOTE | 2025-02-15 08:24 | W.PN.HOSP.TC ---
Today's Communication/Plan
-
await cards/pulm recs
possible DC today vs 24 hours
Script for BMP given
Assessment / Plan
Assessment / Plan
Assessment:
Acute on chronic hypoxemic respiratory failure/acute hypercapnic respiratory failure requiring noninvasive mechanical ventilation-BiPAP
- weaned to RA and off BiPAP
Acute on chronic HFrEF
Hx of ICD
- continue IV Lasix - requires intensive monitoring of I/Os, weights, lytes. Consider dc to oral Lasix with discharge. repeat BMP outpatient.
- Echo: report pending
- GDMT: Coreg/Farxiga/Verquvo
- DCA cards following
nonischemic myocardial injury in the setting of acute heart failure exacerbation
Hypervolemic hyponatremia
- follow BMP with diuresis
Paroxysmal atrial fibrillation
- continue Coreg/Amiodarone/Digoxin
- patient opts against anticoagulation (hx of GI upset)
COPD without exacerbation
- continue nebs/inhalers
- appreciate pulm input
CAD s/p stents 2016
- continue Plavix/BB/Statin
History of aortic dissection status post repair
Essential HTN
CKD stage 3b
- follow BMP with diuresis
GERD
History of tobacco abuse
Hyperlipidemia - statin
Recent back pain/sciatica s/p epidural infection
Underweight
DVT ppx: SC heparin
Code: Full
Anticipated Discharge: Within 24 hours
Subjective/Interval History
-
Date of Service: February 15, 2025
SOB improved; denies CP
3kg weight improvement since hospitalized
Objective Data
-
Labs:
Laboratory Results
02/15/25
07:22
WBC Pending
Hgb Pending
Hct Pending
Plt Count Pending
Sodium Pending
Potassium Pending
Chloride Pending
Carbon Dioxide Pending
BUN Pending
Creatinine Pending
Glucose Pending
Calcium Pending
Vital Signs:
Vital Signs
Temp Pulse Resp BP Pulse Ox
98.3 F 62 18 116/57 98
02/15/25 07:05 02/15/25 07:05 02/15/25 07:05 02/15/25 07:05 02/15/25 07:05
I&O
02/14/25 02/15/25 02/16/25
06:59 06:59 06:59
Intake Total 840 / 840
Output Total 1350 / 1350 300 / 300
Balance -1350 / -1350 540 / 540
Physical Exam
-
General: No Apparent Distress
HEENT: Normocephalic and Atraumatic
Respiratory: Negative Wheezes
Cardiac: Regular Rhythm and S1/S2
GI: Soft and Nontender
Genito-urinary: No Costovertebral Tender
Neuro: AO x 3
Psych: Calm
Data Reviewed
-
Total Time Spent with Patient (in minutes): 51
Labs: Labs Reviewed by me
[2025-02-15 08:28] LABS: Hematocrit 34.1 % (37.0-47.0); Mean Corp Hgb Conc. 32.3 g/dL (33.0-37.0); Mean Corpuscular Volume 74.3 fL (81.0-99.0); Platelet Count 173 10^3/uL (130-400); Red Blood Cell Count 4.59 10^6/uL (4.20-5.40); Red Cell Dist. Width 17.3 % (11.5-14.5); White Blood Cell Count 9.5 10^3/uL (4.8-10.8)
[2025-02-15] MEDS: PACERONE 100 MG PO (08:50)
[2025-02-15] MEDS: COREG 6.25 MG PO (08:50)
[2025-02-15] MEDS: PLAVIX 75 MG PO (08:50)
[2025-02-15] MEDS: HEPARIN 5000 UNITS SC (08:50)
[2025-02-15] MEDS: FARXIGA 10 MG PO (08:50)
[2025-02-15] MEDS: PROTONIX 40 MG PO (08:50)
[2025-02-15] MEDS: LASIX 40 MG IV (08:51)
[2025-02-15] MEDS: NON-FORMULARY ITEM 10 MG PO (09:06)
[2025-02-15 09:20] LABS: Blood Urea Nitrogen 40 mg/dl (7-17); Calcium 8.9 mg/dl (8.4-10.2); Carbon Dioxide 36 mmol/L (22-30); Chloride 89 mmol/L (98-107); Estimated Creatinine Clearance 23 ml/min; Glucose 108 mg/dl (70-99); Magnesium 2.4 mg/dl (1.6-2.3); Potassium 4.7 mmol/L (3.5-5.1); Sodium 130 mmol/L (135-145)
[2025-02-15] MEDS: BENTYL 20 MG PO (10:53)
[2025-02-15] MEDS: MIRALAX 17 GRAMS PO (10:53)
--- NOTE | 2025-02-15 10:58 | CM ---
Addendum entered by Lili Bernard 02/15/25 12:39:
PT/OT rec HH
prefers [facility]
referral placed in [facility]
Called Kathi Hearn liaison
PLAN: Home with [facility] when stable
Fax #: [phone]
Original Note:
Met with patient and at bedside
Await PT/OT rec
Patient stated that daughter is a PT with [facility]
PLAN: await PT/OT rec, CM to continue to follow
[2025-02-15 11:05] VITALS: BP 124/57
[2025-02-15 12:20] VITALS: BP 117/53; PULSE 71; O2SAT 98
[2025-02-15] MEDS: LANOXIN 62.5 MCG PO (12:48)
--- NOTE | 2025-02-15 13:14 | W.PN.PUL3 ---
Today's Communication / Plan
-
Okay to discharge from pulmonary perspective
Continue as needed albuterol HFA and nebulizer. Outpatient pulmonary follow-up information left in the chart.
Sign off
Assessment
-
80-year-old woman with past medical history noted. Came to the hospital complaining of shortness of breath from 1 night. She was found to have abnormal chest x-ray, significant increased proBNP, hypoxemic and hypercapnic. Requiring noninvasive
mechanical ventilation. We were consulted for evaluation of of possible COPD. Patient is a smoker. No available pulmonary function testing. Does not follow-up locally.
She does not take any long-acting bronchodilators.
Acute on chronic hypoxemic respiratory failure/acute hypercapnic respiratory failure requiring noninvasive mechanical ventilation-BiPAP.
AB.25/52/75.
Chest x-ray: Increased interstitial markings bilaterally-suspect pulmonary vascular congestion.
COVID-negative/flu negative.
Acute on chronic heart failure with reduced ejection fraction
Positive troponins
proBNP 94181
Leukocytosis possibly reactive
Recent epidural infection for back pain and sciatica
Conditions present prior admission:
Paroxysmal atrial fibrillation
COPD
Chronic heart failure with reduced ejection fraction-ICD in place
Prior coronary stenting 2016
History of aortic dissection status post repair
Hypertension
Chronic kidney disease
GERD
History of tobacco abuse
Hyperlipidemia
Assessment and plan:
Clinical picture more consistent with acute heart failure with reduced ejection fraction-pulmonary edema on chest x-ray, increased proBNP rapid improvement.
This morning oxygen has been weaned off.
Clinically improved.
Able to speak in full sentences
-
No longer requiring BiPAP.
Patient feels close to baseline.
Denies phlegm production.
Lung exam without bronchospasm-moving good air. Able to speak in full sentences.
Patient does not follow-up with pulmonary-does not recall having pulmonary function testing. Does not take long-acting bronchodilators. She has a nebulizer and albuterol as needed. Prior CT chest from 2022 without significant parenchymal lung
abnormalities. No evidence for emphysema.
-
Bibasilar crackles on exam-not bronchospastic.
Corticosteroids discontinued
As needed nebulizers. Not requiring here in the hospital.
No indication for antibiotics
Eventual repeat chest x-ray to document improvement in bilateral increased interstitial markings.
-
I recommend outpatient pulmonary follow-up. She is agreeable. My information will be left in the chart.
-
Continue cardiac management clinically improved after diuresis.
Diuretics
Low-sodium diet
Okay to discharge from our perspective.
Sign off

Data reviewed:
Echocardiogram 03/18/2024: Ejection fraction 20 to 25%. Stage II diastolic dysfunction. Normal right ventricular size and function. Mild to moderate AR. Mild to moderate TR.
-
Chest x-ray 02/13/2025: Reviewed showed widespread prominent pulmonary interstitial markings suggestive of pulmonary vascular congestion.
CT chest 01/28/2023: Reviewed, showed no evidence for pulmonary embolus. Tiny bilateral pleural effusions. I did not appreciate pulmonary fibrosis or emphysema.
Subjective Data
-
Date of Service:
Date of Service: February 15, 2025
Chief Complaint: Pulmonary Follow Up (Acute hypoxemic respiratory failure)
Subjective:
Clinically improved
Denies cough or wheezing.
Review of Systems
Cardiopulmonary: Dyspnea (Improved)
GI: Abdominal Pain (n) and Nausea (n)
Objective Data
Data Reviewed
Vital Signs / I&O / Oxygen:
Vital Signs
Temp Pulse Resp BP Pulse Ox
98.6 F 64 18 124/57 95
02/15/25 11:05 02/15/25 11:05 02/15/25 11:05 02/15/25 11:05 02/15/25 11:05
Intake and Output
02/14/25 02/15/25 02/16/25
06:59 06:59 06:59
Intake Total 840 / 840
Output Total 1350 / 1350 300 / 300
Balance -1350 / -1350 540 / 540
SaO2 95
Nasal Cannula flow liters per 2
minute
Physical Exam
General: Comfortable
HEENT: Normocephalic
Cardiovascular: S1-S2
Respiratory: Non-Labored Respirations
GI: Soft and Non Distended
Neurology: Awake, Oriented, AO x 3 and No Motor Deficits
Labs/Micro/Reports
Lab Data
02/15/25 07:22
02/15/25 07:22
Microbiology
02/13/25 15:32 Nasal Swab Influenza Types A & B (JUDIE) - Final
Negative for Influenza A & B, NAAT
Negative results must be combined with clinical observations
and patient history.
Nucleic Acid Amplification test (NAAT)performed on the
[employer] platform.
[2025-02-15 14:22] VITALS: BP 117/53; PULSE 70; O2SAT 98
[2025-02-15 15:05] VITALS: BP 128/58
--- NOTE | 2025-02-15 15:08 | W.PN.CARDCBS ---
Today's Communication / Plan
-
D/C to home on Lasix 40 mg PO daily, e-scribed with enough refills for 3 months total and patient should see her primary pie filler in that time
VN ordered
Impression / Plan
-
PCP: Dr. Simon
Construction Sales Representative: Dr. Hernandez ([facility] Cardiology [phone])
Impression:
Presented with sudden onset SOB
Acute on chronic HFrEF
Hyponatremia
Elevated troponin
ICM EF 20-25% by echo 03/18/2024
Paroxysmal Afib
Chronic amiodarone and digoxin therapy
Not anticoagulated by patient choice due to h/o reported side effects
Instagarage subcutaneous ICD 05/2017
CAD
NSTEMI w/ LAD BRENNAN 03/2017
Hypertension
Hyperlipidemia
PVCs
Active smoker
h/o Type A Aortic dissection s/p open heart repair/stented at [facility] 03/2017
h/o post-op complicated with clot around the stent and started Eliquis 03/2017
Benign breast disease - lumpectomy
Colon polypectomy
Raynaud's
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
Lexiscan nuclear stress test 04/2019:�Large fixed apical/septal defect
LHC 03/2017: 100% proximal LAD thrombotic stenosis status post BRENNAN, [place] CO 2.84, [place] CI 1.7
Echo 03/2017: EF 20 to 25%, anterior, apical, lateral wall HK, LA 4.2, RSVP 40 to 45 mmHg, no significant valvular disease
Echo 09/2017 :EF 15 to 20% with mild MR/TR, PAP 40-45 mmhg
Echo 01/29/2023: EF 10 to 15%, severe global hypokinesis with mid anteroseptal, mid septal, mid anterior, apical akinesis, stage I diastolic dysfunction, mild AR
Echo 03/18/2024: EF 20-25%, akinesis of the mid to distal anterior wall and septum as well as the apex consistent with prior LAD territory infarct, stage II diastolic dysfunction, mild to moderate AR, mild to moderate TR, estimated PAP 27 mmHg
Echo 02/14/2025: EF 20 to 25%, akinesis of the mid to distal anterior wall and septum is all the apex consistent with prior LAD territory infarct, stage II diastolic dysfunction, normal RV size and function, mild to moderate aortic regurgitation, mild
to moderate TR with PAP 27 mmHg
Plan:
-Weight is down at least 4 lbs this admission with Lasix 40 mg IV daily since admission. Patient was taking Lasix 20 mg PO daily prior to admission.
-Labs reviewed by ma 02/15/25. Cre was 1.3 on admission then 1.2 on 02/14/25 and now up to 1.4 on 02/15/25.
-Will stop Lasix IV and changed to Lasix 40 mg PO daily starting 02/16/25
-Echo report reviewed and summarized above, EF is stable at 20-25%.
-Outpatient dose of Coreg 6.25 mg BID has been continued
-Outpatient dose of Jardiance 10 mg daily change to Farxiga for formulary reasons, but should be resumed upon d/c
-Outpatient dose of Verquvo 2.5 mg daily has been continued
-Patient with known history of paroxysmal A-fib. Not anticoagulated by patient choice due to prior history of GI upset with Eliquis.
-Remains in SR on tele reviewed by ma 02/15/25.
-Continue Coreg as above plus usual outpatient doses of amiodarone 100 mg BID, and digoxin 0.625 mg daily. Digoxin level low at at 0.4
-Patient with previous LAD PCI in 2017 and outpatient dose of Plavix 75 mg daily has been continued
-Continue Crestor 20 mg daily
-Patient plans to go home with VN/PT/OT 02/15/25
HPI: Lili is an 80 year old female with PMH of chronic HFrEF, ICM, paroxysmal atrial fibrillation, subcutaneous ICD, CAD w/ LAD stent, HTN, HLD, PVCs, tobacco abuse, aortic dissection s/p repair, and raynauds. Presented to [facility] ER for evaluation
of sudden onset severe SOB. She had been feeling well, but in afternoon 02/13 suddenly became SOB and was in respiratory distress, prompting ER evaluation. In ER, found to be in acute heart failure with elevated proBNP of 16,900 and chest xray with
interstitial edema. Also concern for COPD exacerbation. Started on IV lasix and IV steroids and admitted for further management. She has had no fevers or cough. No weight gain or edema. Pulmonology evaluated patient and felt COPD exacerbation less
likely, so IV steroids stopped. With diuresis, breathing improving. Was requiring BiPAP on admission, now down to 2L NC.
Progress Note - Construction Sales Representative
Subjective
Date of Service: February 15, 2025
Feels better compared to admission, breathing is better
Objective
Labs:
02/15/25 07:22
02/15/25 07:22
Labs
Hgb 11.0 g/dL (12.0-16.0) L 02/15/25 07:22
Hct 34.1 % (37.0-47.0) L 02/15/25 07:22
Plt Count 173 10^3/uL (130-400) 02/15/25 07:22
Sodium 130 mmol/L (135-145) L 02/15/25 07:22
Potassium 4.7 mmol/L (3.5-5.1) 02/15/25 07:22
BUN 40 mg/dl (7-17) H 02/15/25 07:22
Creatinine 1.4 mg/dL (0.6-1.0) H 02/15/25 07:22
Glucose 108 mg/dl (70-99) H 02/15/25 07:22
Troponins
02/13/25 02/13/25 02/14/25
15:28 18:00 00:52
Troponin I < 0.012 0.027 D 0.312 H* D
02/14/25 02/14/25
05:35 12:55
Troponin I 0.324 H* 0.301 H*
Vital Signs and I&O:
Vital Signs
Temp Pulse Resp BP Pulse Ox
98.6 F 64 18 124/57 95
02/15/25 11:05 02/15/25 11:05 02/15/25 11:05 02/15/25 11:05 02/15/25 11:05
Vital Signs
Temp Pulse Resp BP Pulse Ox
98.6 F 64 18 124/57 95
02/15/25 11:05 02/15/25 11:05 02/15/25 11:05 02/15/25 11:05 02/15/25 11:05
Intake & Output
02/13/25 02/14/25 02/15/25 02/16/25
06:59 06:59 06:59 06:59
Intake Total 840 / 840
Output Total 1350 / 1350 300 / 300
Balance -1350 / -1350 540 / 540
Physical Exam
Physical Exam
GEN: AAOx3
HEENT: EOMI, MMM
LUNGS: RA. No audible wheeze
CV: SR on tele.
ABD: ND
EXT: No edema B/L
NEURO: Gross non-focal
SKIN: No rash
--- NOTE | 2025-02-15 16:05 | W.DS.TRANS ---
DC Summary - Technology Program Manager
-
Discharge Instructions:
Sleep Apnea Risk Low
Discharge Diagnosis/Procedures acute congestive heart failure, resolved hypoxia
Diet 2 Gram Sodium,Restrict fluids to 48 oz
Activity As tolerated
Blood Work repeat BMP in 1 week - slip given
Other Services VN
Instructions: *PCP/Other Powder Press Operator Heart Failure Instructions
Stand-Alone Forms:
Changes to Home Medications: Yes
Discharge Medications:
DC Medications w/original date entered in [employer]
carvedilol 6.25 mg tablet 6.25 mg PO BID Heart disease/condition 01/28/23
clopidogrel 75 mg tablet 75 mg PO DAILY Blood clot prevention/tx 01/28/23
lorazepam 1 mg tablet 1 mg PO Q6HPRN PRN anxiety 01/28/23
pantoprazole 40 mg tablet,delayed release 40 mg PO DAILY Gastrointestinal Issue 01/28/23
rosuvastatin 20 mg tablet 20 mg PO HS High cholesterol 01/28/23
dicyclomine 20 mg tablet 20 mg PO Q6HPRN PRN cramping 03/17/24
albuterol sulfate 90 mcg/actuation aerosol inhaler 2 puff inhalation R Q6HPRN PRN sob 02/13/25
amiodarone 100 mg tablet 100 mg PO BID Arrhythmia 02/13/25
clonazepam 0.5 mg tablet 0.5 mg PO HSPRN PRN anxiety 02/13/25
digoxin 125 mcg (0.125 mg) tablet 62.5 mcg PO DAILY Arrhythmia 02/13/25
empagliflozin 10 mg tablet (Jardiance) 10 mg PO DAILY Heart Disease/Condition 02/13/25
fluticasone propionate 50 mcg/actuation nasal spray,suspension 1 spray intranasal DAILYPRN PRN allergies 02/13/25
gabapentin 100 mg capsule 100 mg PO HSPRN PRN nerve pain 02/13/25
hydrocodone 5 mg-acetaminophen 325 mg tablet 1 tab PO Q6HPRN PRN severe pain 02/13/25
hydroxyzine HCl 25 mg tablet 25 mg PO TIDPRN PRN itching 02/13/25
ipratropium 0.5 mg-albuterol 3 mg (2.5 mg base)/3 mL nebulization soln 3 ml inhalation R DAILYPRN PRN sob 02/13/25
magnesium oxide 400 mg (241.3 mg magnesium) tablet 400 mg PO DAILYPRN PRN leg cramps 02/13/25
tetrahydrozoline 0.05 % eye drops (Visine) 1 drp ophthalmic (eye) DAILYPRN PRN itchy eyes 02/13/25
vericiguat 10 mg tablet (Verquvo) 10 mg PO DAILY Heart Failure 02/13/25
furosemide 40 mg tablet (Lasix) 40 mg PO DAILY Heart Failure #30 tabs 02/15/25
Home Medication Changes
Lasix dose increased
Pending Results: No
--- NOTE | 2025-02-16 09:23 | W.HF.CON ---
Heart Failure
- LV Function
Left ventricular function study result: LV Ejection fraction </= 35%
Ejection Fraction Percentage: 20-25
- ARNI
Patient already on ARNI: No
Heart Failure ARNI Contraindication: Worsening Renal Function
- ACEI/ARB
Patient already on ACEI/ARB: No
Heart Failure ACEI/ARB Contraindication: Worsening Renal Function
- Beta Amari
Patient already on Evidence Based Beta Amari: Yes
- Mineralocorticord Receptor Antagonist
Patient already on MRA: No
Heart Failure MRA Contraindication: Hypotension
- SGLT-2 Inhibitor
Patient already on SGLT-2 Inhibitor: Yes
- Afib Anticoagulation
Patient already on Anticoagulation for Afib: No
Heart Failure Afib Anticoagulation Contraindication: Patient Refusal
- NYHA CHF Classification
NYHA CHF Classification Level: Class III - Symptoms w/ min exertion, interferes w/ nml daily activity
- ACC/AHA Stage
ACC/AHA Stage: Stage C: Symptomatic Heart Failure
== END 2025-02-15 16:47 | disposition home health service (06) | DRG 291 ==
LOC: 3 WEST ACU 16:46
PROVIDERS: ADMITTING PHYSICIAN Hospitalist; ATTENDING PHYSICIAN Internal Medicine; CONSULT PHYSICIAN Internal Medicine Critical Care Medicine; CONSULT PHYSICIAN Nuclear Medicine Nuclear Cardiology; EMERGENCY PHYSICIAN Emergency Medicine; FAMILY PHYSICIAN Family Medicine
DX: I13.0 Hypertensive heart and chronic kidney disease with heart failure and stage 1 through stage 4 chronic kidney disease, or unspecified chronic kidney disease (principal); I50.23 Acute on chronic systolic (congestive) heart failure; J96.22 Acute and chronic respiratory failure with hypercapnia; I71.00 Dissection of unspecified site of aorta; J96.21 Acute and chronic respiratory failure with hypoxia; J44.1 Chronic obstructive pulmonary disease with (acute) exacerbation; E87.1 Hypo-osmolality and hyponatremia; Z68.1 Body mass index [BMI] 19.9 or less, adult; Z11.52 Encounter for screening for COVID-19; I5A Non-ischemic myocardial injury (non-traumatic); F17.210 Nicotine dependence, cigarettes, uncomplicated; I48.0 Paroxysmal atrial fibrillation; I25.10 Atherosclerotic heart disease of native coronary artery without angina pectoris; Z79.02 Long term (current) use of antithrombotics/antiplatelets; N18.30 Chronic kidney disease, stage 3 unspecified; K21.9 Gastro-esophageal reflux disease without esophagitis; F32.A Depression, unspecified; F41.9 Anxiety disorder, unspecified; E78.00 Pure hypercholesterolemia, unspecified; R63.6 Underweight; Z95.810 Presence of automatic (implantable) cardiac defibrillator; Z95.5 Presence of coronary angioplasty implant and graft; Z79.899 Other long term (current) drug therapy; I42.9 Cardiomyopathy, unspecified
CPT/HCPCS: 71045; 80048; 80053; 82805; 83735; 83880; 84484; 85025; 85027; 87502; 87811; 93005; 93306; 94640; 94660; 96374; 96375; 97116; 97163; 97166; 99291; 99406; Q9950